=== PATIENT | female | born 1935 | race Caucasian/White ===

== ENCOUNTER → 2023-12-06 10:25 | Outpatient (REF) | payer MEDICARE, SELFPAY ==
[2023-12-06 12:03] LABS: % Basophils 0.6 % (0-2); % Eosinophils 5.5 % (0-6); % Lymphocytes 39.8 % (20.5-51.1); % Monocytes 13.3 % (1.7-9.3); % Neutrophils 40.8 % (42.2-75.2); Absolute Eosinophils 0.3 10^3/uL (0-0.7); Absolute Monocytes 0.7 10^3/uL (0.1-0.6); Absolute Neutrophils 2.1 10^3/uL (1.4-6.5); Hematocrit 32.2 % (37.0-47.0); Hemoglobin 9.9 g/dL (12.0-16.0); Mean Corp Hgb Conc. 30.7 g/dL (33.0-37.0); Mean Corpuscular Hgb 28.4 pg (27.0-31.0); Mean Corpuscular Volume 92.5 fL (81.0-99.0); Mean Platelet Volume 11.4 fL (7.4-10.4); Nucleated Red Blood Cells % 0 %; Platelet Count 193 10^3/uL (130-400); Red Blood Cell Count 3.48 10^6/uL (4.20-5.40); Red Cell Dist. Width 15.4 % (11.5-14.5); White Blood Cell Count 5.1 10^3/uL (4.8-10.8)
[2023-12-06 12:17] LABS: Blood Urea Nitrogen 20 mg/dl (7-17); Calcium 8.5 mg/dl (8.4-10.2); Carbon Dioxide 33 mmol/L (22-30); Chloride 100 mmol/L (98-107); Glucose 87 mg/dl (70-99); Potassium 4.1 mmol/L (3.5-5.1); Sodium 137 mmol/L (135-145); eGFR > 60.00
[2023-12-06 12:26] LABS: NT-proBNP 896 pg/ml
== END ==
LOC: OLABN 10:25
PROVIDERS: ATTENDING PHYSICIAN Student in an Organized Health Care Education/Training Program
DX: Z13.9 Encounter for screening, unspecified (principal); Z13.0 Encounter for screening for diseases of the blood and blood-forming organs and certain disorders involving the immune mechanism; I10 Essential (primary) hypertension
CPT/HCPCS: 36415; 80048; 83880; 85025

== ENCOUNTER → 2024-02-06 10:04 | Outpatient (REF) | payer MEDICARE, SELFPAY ==
[2024-02-06 11:49] LABS: Blood Urea Nitrogen 20 mg/dl (7-17); Calcium 8.9 mg/dl (8.4-10.2); Carbon Dioxide 33 mmol/L (22-30); Chloride 96 mmol/L (98-107); Glucose 108 mg/dl (70-99); Magnesium 2.1 mg/dl (1.6-2.3); Potassium 4.4 mmol/L (3.5-5.1); Sodium 133 mmol/L (135-145); eGFR > 60.00
[2024-02-06 16:29] LABS: NT-proBNP 1730 pg/ml
== END ==
LOC: OLABN 10:04
PROVIDERS: ATTENDING PHYSICIAN Student in an Organized Health Care Education/Training Program
DX: R05.9 Cough, unspecified (principal)
CPT/HCPCS: 80048; 83735; 83880

== ENCOUNTER → 2024-02-11 11:00 | Outpatient (REF) | payer MEDICARE, SELFPAY ==
[2024-02-11 13:59] LABS: Blood Urea Nitrogen 25 mg/dl (7-17); Calcium 8.9 mg/dl (8.4-10.2); Carbon Dioxide 34 mmol/L (22-30); Chloride 96 mmol/L (98-107); Glucose 117 mg/dl (70-99); Potassium 4.4 mmol/L (3.5-5.1); Sodium 134 mmol/L (135-145); eGFR > 60.00
== END ==
LOC: OLABN 11:00
PROVIDERS: ATTENDING PHYSICIAN Student in an Organized Health Care Education/Training Program
DX: R05.9 Cough, unspecified (principal)
CPT/HCPCS: 36415; 80048

== ENCOUNTER → 2024-03-06 10:10 | Outpatient (REF) | payer MEDICARE, SELFPAY ==
[2024-03-06 11:19] LABS: ALT (SGPT) < 10 U/L (0-35); AST (SGOT) 20 U/L (14-36); Albumin 3.4 g/dl (3.5-5.0); Alkaline Phosphatase 72 U/L (38-126); Blood Urea Nitrogen 19 mg/dl (7-17); Carbon Dioxide 35 mmol/L (22-30); Chloride 100 mmol/L (98-107); Glucose 91 mg/dl (70-99); Magnesium 2.1 mg/dl (1.6-2.3); Potassium 4.5 mmol/L (3.5-5.1); Sodium 139 mmol/L (135-145); Total Bilirubin 0.4 mg/dl (0.2-1.3); Total Protein 5.9 g/dl (6.3-8.2); eGFR > 60.00
[2024-03-06 11:26] LABS: NT-proBNP 963 pg/ml
== END ==
LOC: OLABN 10:10
PROVIDERS: ATTENDING PHYSICIAN Student in an Organized Health Care Education/Training Program
DX: R60.9 Edema, unspecified (principal)
CPT/HCPCS: 36415; 80053; 83735; 83880

== ENCOUNTER → 2024-05-13 11:16 | Outpatient (REF) | payer MEDICARE, OTHER, SELFPAY ==
[2024-05-13 12:31] LABS: % Basophils 0.2 % (0-2); % Eosinophils 1.5 % (0-6); % Immature Granulocytes 0.3 % (0-0.5); % Lymphocytes 15.8 % (20.5-51.1); % Monocytes 12.1 % (1.7-9.3); % Neutrophils 70.1 % (42.2-75.2); Absolute Eosinophils 0.1 10^3/uL (0-0.7); Absolute Lymphocytes 1.5 10^3/uL (1.2-3.4); Absolute Monocytes 1.1 10^3/uL (0.1-0.6); Absolute Neutrophils 6.6 10^3/uL (1.4-6.5); Hemoglobin 9.2 g/dL (12.0-16.0); Mean Corp Hgb Conc. 30.7 g/dL (33.0-37.0); Mean Corpuscular Hgb 27.8 pg (27.0-31.0); Mean Corpuscular Volume 90.6 fL (81.0-99.0); Mean Platelet Volume 12.2 fL (7.4-10.4); Nucleated Red Blood Cells % 0 %; Platelet Count 190 10^3/uL (130-400); Red Blood Cell Count 3.31 10^6/uL (4.20-5.40); Red Cell Dist. Width 15.5 % (11.5-14.5); White Blood Cell Count 9.4 10^3/uL (4.8-10.8)
[2024-05-13 12:43] LABS: NT-proBNP 1690 pg/ml
[2024-05-13 12:46] LABS: ALT (SGPT) 13 U/L (0-35); AST (SGOT) 22 U/L (14-36); Albumin 3.7 g/dl (3.5-5.0); Alkaline Phosphatase 71 U/L (38-126); Blood Urea Nitrogen 17 mg/dl (7-17); Calcium 8.6 mg/dl (8.4-10.2); Carbon Dioxide 33 mmol/L (22-30); Chloride 95 mmol/L (98-107); Glucose 95 mg/dl (70-99); Potassium 4.2 mmol/L (3.5-5.1); Sodium 139 mmol/L (135-145); Total Bilirubin 0.6 mg/dl (0.2-1.3); Total Protein 6.3 g/dl (6.3-8.2); eGFR > 60.00
== END ==
LOC: OLABN 11:16
PROVIDERS: ATTENDING PHYSICIAN Student in an Organized Health Care Education/Training Program
DX: D49.511 Neoplasm of unspecified behavior of right kidney (principal); R06.2 Wheezing; R60.0 Localized edema
CPT/HCPCS: 36415; 80053; 83880; 85025

== ENCOUNTER → 2024-05-16 08:03 | Outpatient (REF) | payer MEDICARE, OTHER, SELFPAY ==
[2024-05-16 10:45] LABS: Blood Urea Nitrogen 16 mg/dl (7-17); Calcium 8.9 mg/dl (8.4-10.2); Carbon Dioxide 36 mmol/L (22-30); Chloride 94 mmol/L (98-107); Glucose 149 mg/dl (70-99); Potassium 4.3 mmol/L (3.5-5.1); Sodium 138 mmol/L (135-145); eGFR > 60.00
[2024-05-16 10:53] LABS: NT-proBNP 2190 pg/ml
== END ==
LOC: OLABN 08:03
PROVIDERS: ATTENDING PHYSICIAN Student in an Organized Health Care Education/Training Program
DX: R06.02 Shortness of breath (principal)
CPT/HCPCS: 36415; 80048; 83880

== ENCOUNTER → 2024-07-16 08:38 | Outpatient (REF) | payer MEDICARE, OTHER, SELFPAY ==
[2024-07-16 10:41] LABS: ALT (SGPT) 11 U/L (0-35); AST (SGOT) 24 U/L (14-36); Albumin 3.7 g/dl (3.5-5.0); Alkaline Phosphatase 72 U/L (38-126); Blood Urea Nitrogen 14 mg/dl (7-17); Calcium 8.3 mg/dl (8.4-10.2); Chloride 92 mmol/L (98-107); Glucose 102 mg/dl (70-99); Sodium 138 mmol/L (135-145); Total Bilirubin 0.3 mg/dl (0.2-1.3); Total Protein 6.3 g/dl (6.3-8.2); eGFR > 60.00
[2024-07-16 10:46] LABS: NT-proBNP 1290 pg/ml
[2024-07-16 10:51] LABS: Carbon Dioxide 36 mmol/L (22-30)
== END ==
LOC: OLABN 08:38
PROVIDERS: ATTENDING PHYSICIAN Student in an Organized Health Care Education/Training Program
DX: R60.9 Edema, unspecified (principal)
CPT/HCPCS: 36415; 80053; 83880

== ENCOUNTER → 2024-07-18 10:23 | Outpatient (REF) | payer MEDICARE, OTHER, SELFPAY ==
[2024-07-18 11:32] LABS: Blood Urea Nitrogen 16 mg/dl (7-17); Calcium 8.6 mg/dl (8.4-10.2); Chloride 90 mmol/L (98-107); Glucose 135 mg/dl (70-99); Sodium 135 mmol/L (135-145); eGFR > 60.00
[2024-07-18 11:42] LABS: Carbon Dioxide 34 mmol/L (22-30); NT-proBNP 2110 pg/ml
== END ==
LOC: OLABN 10:23
PROVIDERS: ATTENDING PHYSICIAN Student in an Organized Health Care Education/Training Program
DX: R60.9 Edema, unspecified (principal)
CPT/HCPCS: 36415; 80048; 83880

== ENCOUNTER → 2024-10-14 11:27 | Outpatient (REF) | payer MEDICARE, OTHER, SELFPAY ==
[2024-10-14 12:45] LABS: Vitamin D, 25-OH*** 36.5 ng/mL (30-80)
[2024-10-14 12:59] LABS: TSH 1.99 uIU/ml (0.47-4.68)
== END ==
LOC: OLABN 11:27
PROVIDERS: ATTENDING PHYSICIAN Student in an Organized Health Care Education/Training Program
DX: R94.6 Abnormal results of thyroid function studies (principal); E55.9 Vitamin D deficiency, unspecified
CPT/HCPCS: 36415; 82306; 84443

== ENCOUNTER 2024-10-24 14:33 | Inpatient (IN) | payer MEDICARE, OTHER, SELFPAY ==
[2024-10-24] VITALS (22 sets, daily range): BP systolic 108–177; BP diastolic 52–95; BMI 33.1; BMI 32.6
[2024-10-24 09:37] LABS: % Basophils 0.2 % (0-2); % Eosinophils 0.7 % (0-6); % Immature Granulocytes 0.4 % (0-0.5); % Lymphocytes 11.5 % (20.5-51.1); % Neutrophils 72.2 % (42.2-75.2); Absolute Eosinophils 0.1 10^3/uL (0-0.7); Absolute Lymphocytes 1.1 10^3/uL (1.2-3.4); Absolute Monocytes 1.4 10^3/uL (0.1-0.6); Absolute Neutrophils 6.6 10^3/uL (1.4-6.5); Hematocrit 32.8 % (37.0-47.0); Hemoglobin 10.1 g/dL (12.0-16.0); Mean Corp Hgb Conc. 30.8 g/dL (33.0-37.0); Mean Corpuscular Hgb 27.2 pg (27.0-31.0); Mean Corpuscular Volume 88.2 fL (81.0-99.0); Nucleated Red Blood Cells % 0 %; Platelet Count 172 10^3/uL (130-400); Red Blood Cell Count 3.72 10^6/uL (4.20-5.40); Red Cell Dist. Width 15.1 % (11.5-14.5); White Blood Cell Count 9.1 10^3/uL (4.8-10.8)
--- NOTE | 2024-10-24 09:38 | ED.GENMED ---
History of Present Illness
General
Chief Complaint: Chest Pain
Source: patient
Exam Limitations: none
Time Seen by Provider: 10/24/24 09:31
History of Present Illness
History of Present Illness:
89yoF with a history of COPD, atrial fibrillation, hypertension, and hyperlipidemia presenting via EMS for evaluation of chest pain. Patient is a resident at [facility]. She reports developing a pain throughout her chest starting last night.
She describes her pain as a pressure sensation. Nothing seems to make the pain better or worse. She also reports cough, wheezing, and shortness of breath. Patient was given a DuoNeb prehospital for wheezing without much improvement. She has a
documented history of COPD but is not oxygen dependent at baseline.
Past History
Past History
ED Past Medical History: HTN, Hypercholesterolemia and Other (Chronic back pain)
ED Past Surgical History: Orthopedic (Right knee surgery)
Social History
Tobacco: Non-smoker
Alcohol: Daily
Drug: None
Personal: Single
Living: alone
Employment: Not employed
Phy Exam
General Physical Exam
General Presentation: moderate distress
General Skin: warm and dry
General Habitus: normal and elderly
General Mental: alert
ENT Exam
ENT Exam: normocephalic
Cardiovascular Exam
Cardiovascular Exam: irregularly irregular and tachycardia
Pulmonary Exam
Pulmonary Exam: generalized wheezing and other (Audible wheezing with tachypnea. Patient on 4L NC on initial exam with oxygen saturation in the 88-89% range)
Neurological Exam
Neurological Exam: alert
Skin Exam
Skin Exam: normal color and warm/dry
Psychiatric Exam
Psychiatric Exam: normal mood/affect
Scores
Heart Score for Chest Pain Patients
STEMI patient?: Not applicable
Sepsis
Sepsis Screening
Sepsis Assessment: Sepsis Ruled Out
Sepsis Screen
Sepsis Screen: Sepsis Ruled Out
Date: 10/24/24
Time: 15:35
Course
Orders/Labs/Results
Orders:
Orders
10/24/24 09:17
Electrocardiogram (*1) Urgent
Reason for Study: Chest Pain
10/24/24 09:18
EKG- Treatment ONCE
10/24/24 09:19
COVID-19 Antigen Urgent
Source: Nasal Swab
Complete Blood Count/With Diff Urgent
Comprehensive Metabolic Panel Urgent
Magnesium Urgent
Comment: ADD ON
NT-proBNP Urgent
Comment: ADD ON
Troponin I Urgent
Influenza A+B Rapid Molecular Urgent
FELICITY Source: Nasal Swab
Specimen Description:
10/24/24 09:31
Ipratropium/Albuterol Sulfate [Duoneb] 3 ml .ROUTE .[facility]
10/24/24 09:36
Add On- LAB Urgent
Tests Added?: mag
Albuterol Sulfate [Ventolin Nebules] 10 mg INH R NOW STA
Ipratropium Nebs [Atrovent Nebules] 1 mg INH R NOW STA
CR Chest Portable - 1 View Urgent
Comment:
Reason For Exam: CP, hypoxia
Reason Study Needs to be Portable: Unable to Transport
10/24/24 09:38
Respiratory Syncytial Virus Urgent
FELICITY Source: Nasal Swab
Specimen Description:
Date Specimen was Collected: 10/24/24
Time Specimen was Collected: 09:36
10/24/24 09:45
0.9% Sodium Chloride 500 ml [Nss] 500 ml IV BOLUS
Acetaminophen [Tylenol] 1,000 mg PO NOW STA
10/24/24 10:02
Add On- LAB Urgent
Tests Added?: BNP
10/24/24 10:11
Azithromycin 500 mg/250 ml [Zithromax Infusion] 500 mg in 250 ml IV NOW
Dexamethasone Sod Phosphate [Decadron] 10 mg IV NOW STA
Magnesium Sulfate 2 Gram/50 ml [Magnesium Sulfate] 2 gram in 50 ml IV NOW
10/24/24 10:13
Blood Culture Q30M
FELICITY Source: Blood/Venous
Specimen Description:
Blood Culture Q30M
FELICITY Source: Blood/Venous
Specimen Description:
10/24/24 13:57
CT Chest PE Study Urgent
Comment:
Reason For Exam: hypoxia tachycardia S1Q3T3
10/24/24 14:00
CefTRIAXone [Rocephin] 2,000 mg IV Q24H
Sterile Water [Sterile Water For Injection] 20 ml IV Q24H
10/24/24 14:13
Admit/Transfer Patient As Directed
Co-Sign Provider:
Level of Care: Inpatient admission
Assign to:: Telemetry
Physician / Group: Lesly Lynn
Diagnosis: COPD exacerbation
Reason for Telemetry: Arrhythmia
Date to Stop Telemetry: 10/27/24
Time to Stop Telemetry: 11:00
Reason for Hospitalization: COPD exacerbation
Expected length of stay greater than two midnights?: Yes
ELOS- Estimated Length of Stay in days: 2
I certify the patient meets the requirements for IP care: Yes
PRN Pain Medication Management As Directed
May give lesser potent ordered pain med per pt: Yes
preference::
Protocol:: Medication orders for pain may be administered in a
manner that supports deferring to patient preference
when the pt is:
- Requesting an ordered lesser potent pain medication.
Least to most potent pain medications are defined
as: acetaminophen < NSAID < tramadol < opioids
(morphine, oxycodone, hydromorphone).
- Requesting a lesser dose of the same medication IF
ORDERED.
- Requesting a less intrusive route of administration
if both routes are prescribed by the provider (PO <
IV).
10/24/24 14:19
Code Status As Directed
Resuscitation Status: Do not resuscitate
Reached after discussion with pt or family/Healthcare POA: Yes
DNR Bracelet Application ONCE
10/24/24 14:59
Venous Blood Gas Routine
%Oxygen/Room Air: 92
10/27/24 11:00
DC Protocol for Telemetry ONCE
Abnormal Lab Results
10/24/24
09:19
RBC 3.72 L 10^6/uL
(4.20-5.40)
Hgb 10.1 L g/dL
(12.0-16.0)
Hct 32.8 L %
(37.0-47.0)
MCHC 30.8 L g/dL
(33.0-37.0)
RDW 15.1 H %
(11.5-14.5)
Absolute Neuts (auto) 6.6 H 10^3/uL
(1.4-6.5)
Absolute Lymphs (auto) 1.1 L 10^3/uL
(1.2-3.4)
Absolute Monos (auto) 1.4 H 10^3/uL
(0.1-0.6)
Lymphocytes % 11.5 L %
(20.5-51.1)
Monocytes % 15.0 H %
(1.7-9.3)
Chloride 95 L mmol/L
(98-107)
Carbon Dioxide 37 H mmol/L
(22-30)
Glucose 125 H mg/dl
(70-99)
10/24/24 09:19
10/24/24 09:19
Vital Signs
Initial and Last Documented VS:
Initial Vital Signs
Temp Pulse Resp BP Pulse Ox
100.5 F H 117 23 163/73 86
10/24/24 09:19 10/24/24 09:19 10/24/24 09:19 10/24/24 09:19 10/24/24 09:19
Last Documented Vital Signs
Temp Pulse Resp BP Pulse Ox
100.5 F H 105 17 147/94 95
10/24/24 09:19 10/24/24 14:45 10/24/24 14:45 10/24/24 14:20 10/24/24 14:45
MDM/Problems Addressed
Differential Diagnosis Includes:
89yoF here with chest pressure since last night. Also having SOB, wheezing, cough. Hx of COPD. She is febrile to 100.5 on arrival. Patient placed on 4L NC by nursing staff and she is 88% during initial exam with audible wheezing. Differential
diagnosis includes but is not limited to: COPD exacerbation, bronchitis, viral illness, pneumonia, ACS
Initial ED plan: Check cardiac labs, COVID/flu/RSV swab, EKG, and chest x-ray. Will give hour-long neb treatment and reassess.
*EKG
Interpreted by ED Provider?: Yes
EKG Intrepretation Date: 10/24/24
Heart Rate: 121
Rate: tachycardiac
Rhythm: a-fib and PVC's
[place]: normal axis
Interval: normal interval
QRS Pattern: normal QRS
Ischemia: no ischemia
*Critical Care Note
Total Time (30-74mins, 75-104mins- exclusive of procedures): Not Applicable
Update Note
Update Note:
Viral testing negative. Chest x-ray shows mild pulmonary vascular congestion without focal infiltrates. EKG shows atrial fibrillation with heart rate of 121. No ischemic changes noted and troponin within normal limits. Her chest discomfort has
improved after neb treatment and wheezing also improved. Patient given IV Decadron, magnesium, and azithromycin for COPD exacerbation. She was admitted for further management.
ED Attending Note
-
Portions of this chart may have been created with voice recognition software.� Occasional wrong word or��sound alike� substitutions may have occurred due to the inherent limitations of voice recognition software.
Discharge Plan
Departure
Patient Disposition: Admit
Date of Disposition: 10/24/24
Time of Disposition: 10:56
Presentation/result/management discussed w/ accepting MD/DO: Hospitalist
Discharge Problem:
Acute exacerbation of chronic obstructive pulmonary disease, Acute hypoxic respiratory failure
Interventions
Interventions:
*Risk Screen - Suicide Last Done: 10/24/24 09:24
*General Assessment Last Done: 10/24/24 09:24
*Neglect/Abuse Screening Last Done: 10/24/24 09:24
*ED- Fall Risk Assessment Last Done: 10/24/24 09:24
*ED COVID-19 Vaccine History Last Done: 10/24/24 09:24
ED- Cardiac Assessment Last Done: 10/24/24 09:27
[2024-10-24] MEDS: VENTOLIN NEBULES 10 MG INH (09:40)
[2024-10-24] MEDS: ATROVENT NEBULES 1 MG INH (09:40)
[2024-10-24 09:45] LABS: ALT (SGPT) 13 U/L (0-35); AST (SGOT) 18 U/L (14-36); Albumin 3.8 g/dl (3.5-5.0); Alkaline Phosphatase 78 U/L (38-126); Blood Urea Nitrogen 17 mg/dl (7-17); Calcium 8.9 mg/dl (8.4-10.2); Carbon Dioxide 37 mmol/L (22-30); Chloride 95 mmol/L (98-107); Estimated Creatinine Clearance 50 ml/min; Glucose 125 mg/dl (70-99); Sodium 137 mmol/L (135-145); Total Bilirubin 0.7 mg/dl (0.2-1.3); Total Protein 6.5 g/dl (6.3-8.2); eGFR > 60.00
[2024-10-24] MEDS: NSS 500 IV (09:50)
[2024-10-24] MEDS: TYLENOL 1000 MG PO (09:50)
[2024-10-24 09:55] LABS: Troponin I < 0.012 ng/ml
[2024-10-24 10:06] LABS: COVID-19 Antigen Negative (Negative)
[2024-10-24 10:16] LABS: Magnesium 1.9 mg/dl (1.6-2.3)
[2024-10-24] MEDS: DECADRON 10 MG IV (10:28)
[2024-10-24] MEDS: ZITHROMAX INFUSION 250 IV (10:29)
[2024-10-24] MEDS: MAGNESIUM SULFATE 50 IV (10:30)
[2024-10-24 10:31] LABS: NT-proBNP 1880 pg/ml
--- NOTE | 2024-10-24 11:33 | HPS.HSE ---
Family Physician
-
Family Physician: NOT KNOW UNKNOWN - PT DOES
Chief Complaint
-
chest pain
History of Present Illness
89F [facility] Zheng history COPD on continuous oxygen baseline unclear amount, atrial fibrillation Eliquis, hypertension, hyperlipidemia, Obesity, Fibromyalgia presented for evaluation chest pain. She reported developing a pain throughout her chest
starting night prior presentation. Pain was described as pressure sensation with no alleviating or exacerbating factors. Patient also endorsed cough, wheezing, and shortness of breath. Patient received duoneb steroids in ED with subsequent
improvement in symptoms including resolution of chest pain. Troponin neg. EKG noted afib tachy S1Q3T3 but otherwise no significant change from prior EKG 27 October 2021. Fever 100.5 with tachycardia concerning for possible sepsis. Blood pressure
stable. lactic acid pending.
Medical History
Past Medical History
Past Medical History: Reports Other (as above)
Past Surgical History: Reports Other (as above)
Social History
Tobacco: Non-smoker
Alcohol: None
Drug: None
Living: Jail
Family History
Family History: Not pertinent (reviewed)
Allergies / Home Medications
Allergies reflects when Allergies were last updated in [facility].
Home Medications with original date entered in [facility]
Allergy/Medication List:
Allergies
Allergy/AdvReac Type Severity Reaction Status Date / Time
No Known Allergies Allergy Verified 07/10/16 07:56
Home Medications
amlodipine 5 mg tablet (Norvasc) 5 mg PO DAILY 02/19/22
buprenorphine 7.5 mcg/hour weekly transdermal patch (Butrans) 1 patch transdermal TH 02/19/22
duloxetine 30 mg capsule,delayed release (Cymbalta) 20 mg PO DAILY 02/19/22
oxycodone 5 mg tablet 5 mg PO DAILY 02/19/22
acetaminophen 325 mg tablet 650 mg PO Q4H PRN mild pain/fever 10/24/24
albuterol sulfate 90 mcg/actuation aerosol inhaler 2 puff inhalation Q6H PRN sob 10/24/24
apixaban 2.5 mg tablet (Eliquis) 2.5 mg PO BID 10/24/24
baclofen 5 mg tablet 5 mg PO TID 10/24/24
bisacodyl 10 mg rectal suppository 10 mg NV DAILY PRN 3 days no bm, MOM is ineffective 10/24/24
budesonide 0.5 mg/2 mL suspension for nebulization 0.5 mg inhalation R BID 10/24/24
calcium 500 mg (as carbonate)-vitamin D3 10 mcg (400 unit) tablet (Oyster Shell Calcium-Vitamin D3) 1 tab PO DAILY 10/24/24
fluticasone propionate 50 mcg/actuation nasal spray,suspension 1 spray intranasal BID 10/24/24
gabapentin 300 mg capsule 300 mg PO TID 10/24/24
ipratropium 0.5 mg-albuterol 3 mg (2.5 mg base)/3 mL nebulization soln 3 ml inhalation R TID 10/24/24
labetalol 100 mg tablet 100 mg PO BID 10/24/24
latanoprost 0.005 % eye drops 1 drp BOTH EYES HS 10/24/24
lidocaine 4 % topical patch 1 patch topical DAILY 10/24/24
magnesium hydroxide 400 mg/5 mL oral suspension (Milk of Magnesia) 2,400 mg PO HSPRN PRN constipation 10/24/24
naloxone 4 mg/actuation nasal spray (Narcan) 1 spray intranasal PRN PRN opioid overdose 10/24/24
oxycodone 5 mg tablet 5 mg PO DAILYPRN PRN moderate pain 10/24/24
sennosides 8.6 mg-docusate sodium 50 mg tablet (Senna Plus) 2 tab-cap PO QPM 10/24/24
Review of Systems
-
A 12 point ROS was completed and negative except as noted: Yes
Constitutional: Reports Other (as below)
Physical Exam
Vital Signs
Vital Signs
Temp Pulse Resp BP Pulse Ox
100.5 F H 108 18 121/73 91
10/24/24 09:19 10/24/24 11:15 10/24/24 11:15 10/24/24 11:00 10/24/24 11:15
Physical Exam
General: Other (as below)
Laboratory Results
-
10/24/24 09:19
10/24/24 09:19
Laboratory Results
Total Bilirubin 0.7 mg/dl (0.2-1.3) 10/24/24 09:19
AST 18 U/L (14-36) 10/24/24 09:19
ALT 13 U/L (0-35) 10/24/24 09:19
Alkaline Phosphatase 78 U/L (38-126) 10/24/24 09:19
Troponin I < 0.012 ng/ml 10/24/24 09:19
Impression/Plan
-
ROS
General: Denies fever chills night sweats unexpected weight loss
Neuro: Denies seizure shaking loss of consciousness dizziness vertigo
Psych: denies depression hallucinations confusion manic episodes
Endocrine: Denies polyuria polydipsia polyphagia heat/cold intolerance
HEENT: Denies blindness visual disturbances epistaxis
Pulmonary: reports coughing shortness of breath wheezing
Cardiovascular: reports chest pain palpitations though resolved at this timed
Hematology: denies signs symptoms of anemia easy bruising/bleeding
Gastrointestinal: denies nausea vomiting diarrhea constipation hematemesis hematochezia melena
Genito-Urinary: denies retention incontinence dysuria
Musculoskeletal: denies joint pain weakness
Dermatology: denies rash laceration bruising
Physical Exam
General: No pallor, cyanosis, or jaundice. obese
HEENT: Throat clear. PERRLA Normocephalic atraumatic
NECK: Supple. No JVD Carotid Bruits
RESPIRATORY: Lungs clear to auscultation. No crackles wheezes stridor. Stable respiratory status on 3L
CVS: S1, S2 irregularly irregular tachy. No murmur, rub or gallop.
ABDOMEN: Soft, non-tender. No distension. BS+/normal.
EXTREMITIES: No peripheral cyanosis or edema.
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
IMPRESSION:
89F [place] history COPD on continuous oxygen baseline unclear amount, atrial fibrillation Eliquis, hypertension, hyperlipidemia, Obesity, Fibromyalgia presented for evaluation chest pain. She reported developing a pain throughout her chest
starting night prior presentation. Pain was described as pressure sensation with no alleviating or exacerbating factors. Patient also endorsed cough, wheezing, and shortness of breath. Patient received duoneb steroids in ED with subsequent
improvement in symptoms including resolution of chest pain. Troponin neg. EKG noted afib tachy S1Q3T3 but otherwise no significant change from prior EKG 27 October 2021. Fever 100.5 with tachycardia concerning for possible sepsis. Blood pressure
stable. lactic acid pending.
PLAN:
#COPD exacerbation
#Possible Sepsis PNA
#Possible PE (less likely, on anticoagulation for afib)
Tele admit
check CT chest
cont nebulizer tx, steroids
follow blood cultures
cont empiric Ceftriaxone azithromycin
check Lactic Acid, VBG, procalcitonin
trend temp, wbc
cont O2 supplementation as necessary pulse ox 92%
BNP elevated but improved from patient's prior values, possibly baseline
#Afib
#HTN
cont Eliquis dose increased to 5 mg BID
Cont labetalol amlodipine with holding parameters
#Fibromyalgia
#Neuropathy
#Arthritis
cont pain control
Cymbalta
Gabapentin
Oxycodone scheduled and prn
baclofen
Tylenol prn
ST/PT/OT eval requested
dvt ppx Eliquis
gi ppx Protonix
DNR as per patient and daughters Marci HOLLAND and Elba
Discussed with patient and patient's daughters named above
I spent a total of 80 minutes with the patient or on the floor. More than 50% of this time involved counseling and coordination of care.
[2024-10-24] MEDS: ROCEPHIN 2000 MG IV (15:00)
[2024-10-24] MEDS: STERILE WATER FOR INJECTION 20 ML IV (15:00)
[2024-10-24 15:18] LABS: Venous Blood Gas B.E. 10.6 mmol/L (-4 to +4); Venous Blood Gas HCO3 37.2 mmol/L (22-27); Venous Blood Gas O2 Sat % 98.8 %; Venous Blood Gas pCO2 60 mmHg (35-48); Venous Blood Gas pO2 160 mmHg (30-50)
[2024-10-24 15:37] LABS: Lactic Acid 0.7 mmol/L (0.7-2.0)
[2024-10-24] MEDS: SOLU-MEDROL PF 40 MG IV ×2 (18:00→23:32)
[2024-10-24] MEDS: SENOKOT-S 1 TABLET PO (18:07)
[2024-10-24] MEDS: PROTONIX 40 MG PO (18:07)
[2024-10-24] MEDS: LIORESAL 5 MG PO ×2 (18:07→21:25)
[2024-10-24] MEDS: NEURONTIN 300 MG PO ×2 (18:07→21:27)
[2024-10-24] MEDS: DUONEB 3 ML INH (18:27)
[2024-10-24] MEDS: PULMICORT 0.5 MG INH (18:27)
[2024-10-24] MEDS: TRANDATE 100 MG PO (21:25)
[2024-10-24] MEDS: ELIQUIS 5 MG PO (21:25)
[2024-10-24] MEDS: XALATAN OPHTHALMIC SOLUTION 1 DROP BOTH EYES (21:27)
[2024-10-25] VITALS (8 sets, daily range): BP systolic 125–159; BP diastolic 59–90; PULSE 92–99; O2SAT 97–98; BMI 32.7
[2024-10-25] MEDS: DUONEB 3 ML INH ×3 (05:44→19:24)
[2024-10-25] MEDS: PULMICORT 0.5 MG INH ×2 (05:44→19:24)
[2024-10-25 06:37] LABS: Hematocrit 32.3 % (37.0-47.0); Hemoglobin 10.1 g/dL (12.0-16.0); Mean Corp Hgb Conc. 31.3 g/dL (33.0-37.0); Mean Corpuscular Hgb 27.4 pg (27.0-31.0); Mean Corpuscular Volume 87.5 fL (81.0-99.0); Mean Platelet Volume 10.6 fL (7.4-10.4); Platelet Count 180 10^3/uL (130-400); Red Blood Cell Count 3.69 10^6/uL (4.20-5.40); White Blood Cell Count 5.5 10^3/uL (4.8-10.8)
--- NOTE | 2024-10-25 06:51 | PTCARENOTE ---
Pt reported feels like food gets stuck in throat sometimes. Able to clear it but trouble with eating meals because of it. ST screen from nursing placed. Pt was able to take PO meds without difficulty.
[2024-10-25 07:07] LABS: Procalcitonin 0.05 ng/ml (0.0-0.25)
[2024-10-25 07:16] LABS: Blood Urea Nitrogen 17 mg/dl (7-17); Calcium 8.6 mg/dl (8.4-10.2); Carbon Dioxide 34 mmol/L (22-30); Chloride 97 mmol/L (98-107); Estimated Creatinine Clearance 58 ml/min; Glucose 147 mg/dl (70-99); Magnesium 2.5 mg/dl (1.6-2.3); Potassium 4.2 mmol/L (3.5-5.1); Sodium 137 mmol/L (135-145); eGFR > 60.00
--- NOTE | 2024-10-25 07:52 | W.PN.HOSP.TC ---
Today's Communication/Plan
-
steroid taper
cont scheduled nebulizer treatments
ECHO Saturday
Pulm eval
soft bite sized diet, aspiration precautions
cont azithromycin
Incentive Spirometer, Acapella
Assessment / Plan
Assessment / Plan
Physical Exam
General: No pallor, cyanosis, or jaundice. obese
HEENT: Throat clear. PERRLA Normocephalic atraumatic
NECK: Supple. No JVD Carotid Bruits
RESPIRATORY: Largely clear to auscultation, faint wheeze. Stable respiratory status on 3L
CVS: S1, S2 irregularly irregular tachy. No murmur, rub or gallop.
ABDOMEN: Soft, non-tender. No distension. BS+/normal.
EXTREMITIES: No peripheral cyanosis or edema.
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
IMPRESSION:
89F [place] history COPD 3L baseline, atrial fibrillation Eliquis, hypertension, hyperlipidemia, Obesity, Fibromyalgia presented for evaluation chest pain. She reported developing a pain throughout her chest starting night prior
presentation. Pain was described as pressure sensation with no alleviating or exacerbating factors. Patient also endorsed cough, wheezing, and shortness of breath. Patient received duoneb steroids in ED with subsequent improvement in symptoms
including resolution of chest pain. Troponin neg. EKG noted afib tachy S1Q3T3 but otherwise no significant change from prior EKG 27 October 2021. Fever 100.5 with tachycardia concerning for possible sepsis. Blood pressure stable. lactic acid
pending.
PLAN:
#COPD 3L baseline
#COPD exacerbation
#Possible Sepsis PNA
#Possible PE (less likely, on anticoagulation for afib)
Tele admit
CT chest appreciated no PE
cont nebulizer tx, IV steroids tapered to Prednisone 40 mg daily
follow blood cultures
neg procal
empiric Ceftriaxone discontinued
azithromycin continued for anti-inflammatory effects IV 500 mg daily planned for total 3 days (Saturday last )
no significant Lactic Acidosis
VBG appreciated hypercapnia but compensated
cont O2 supplementation as necessary pulse ox 92%
Elevated BNP though appears possibly baseline for patient, checking ECHO for possible Heart Failure, discussed with Cardio CBC no need for inpt evaluation at this time- consult if significant abn/acute change noted on ECHO
Incentive Spirometer Acapella
Pulm eval appreciated
#Afib
#HTN
cont Eliquis dose increased to 5 mg BID doesn't meet criteria for renal dosing (needs at least 2 out of three, meets criteria for age>=80y but not for weight<=60kg or Cr>=1.5)
Cont labetalol amlodipine with holding parameters
#Fibromyalgia
#Neuropathy
#Arthritis
cont pain control
Cymbalta
Gabapentin
Oxycodone scheduled and prn
baclofen
Tylenol prn
ST eval appreciated soft bite sized diet (suspect chest pain COPD exacerbation triggered by aspiration event)
PT/OT eval appreciated return to SNF when medically stable
dvt ppx Eliquis
gi ppx Protonix
DNR as per patient and daughters Marci HOLLAND and Elba
Discussed with patient and patient's daughter Elba
I spent a total of 50 minutes with the patient or on the floor. More than 50% of this time involved counseling and coordination of care.
Anticipated Discharge: 24 - 48 hours
Subjective/Interval History
-
Date of Service: October 25, 2024
No acute distress. Patient reports feeling well. Significant improvement in symptoms since admission. Chest pain free.
Objective Data
-
Labs:
Laboratory Results
10/25/24
06:29
WBC 5.5
Hgb 10.1 L
Hct 32.3 L
Plt Count 180
Sodium 137
Potassium 4.2
Chloride 97 L
Carbon Dioxide 34 H
BUN 17
Creatinine 0.6
Glucose 147 H
Calcium 8.6
Vital Signs:
Vital Signs
Temp Pulse Resp BP Pulse Ox
98.2 F 102 19 152/79 98
10/25/24 07:21 10/25/24 07:21 10/25/24 07:21 10/25/24 07:21 10/25/24 07:21
I&O
10/24/24 10/25/24 10/26/24
06:59 06:59 06:59
Intake Total 960 / 960
Output Total 950 / 950
Balance
--- NOTE | 2024-10-25 08:27 | CM ---
New admit from [facility], appears to be L[facility] resident; will need to check with [facility] Zheng on Saturday for clarification.
--- NOTE | 2024-10-25 09:04 | PTOTSP ---
Speech Pathology Evaluation
89F admitted for chest pain with c/o food getting stuck in throat p/w s/s concerning for oral dysphagia, likely as a result of edentulous status. Aspiration risk is elevated in the presence of COPD with continuous O2 use at baseline.
Recommend:
1. Soft and bite sized (IDDSI 6), thin liquids (IDDSI 0)
2. Meds as best tolerated
3. Strategies: small bites; single sips; chew well; opt for soft/moist foods when dentures are not present; alternate bites and sips
4. COMPUTING TUTOR service to follow up re: to assess diet level tolerance and upgrade as able
[2024-10-25] MEDS: TRANDATE 100 MG PO ×2 (09:27→21:05)
[2024-10-25] MEDS: NEURONTIN 300 MG PO ×3 (09:27→21:11)
[2024-10-25] MEDS: DELTASONE 40 MG PO (09:27)
[2024-10-25] MEDS: PROTONIX 40 MG PO (09:27)
[2024-10-25] MEDS: ELIQUIS 5 MG PO ×2 (09:28→21:05)
[2024-10-25] MEDS: OSCAL 500 + D 500 MG PO (09:28)
[2024-10-25] MEDS: NORVASC 5 MG PO (09:28)
[2024-10-25] MEDS: LIORESAL 5 MG PO ×3 (09:28→21:11)
[2024-10-25] MEDS: ROXICODONE 5 MG PO ×2 (09:28→17:31)
[2024-10-25] MEDS: ZITHROMAX INFUSION 250 IV (09:29)
[2024-10-25] MEDS: LIDOCAINE 4% PATCH 1 PATCH TOPICAL (09:29)
[2024-10-25] MEDS: CYMBALTA DELAYED RELEASE 20 MG PO (13:02)
--- NOTE | 2024-10-25 14:30 | CON.PUL ---
Consultation
Consultation Request
Date/Time Consultation Requested: 10/25/20241027
Date/Time Consultation Performed: 10/25/2024 - 1199
Requesting Provider: Dr. Lynn
Performing Provider: Dr. Cho
Reason for Consultation: Hypoxia
Medical History
-
Chief Complaint: Chest pain + SOB with cough
History of Present Illness:
89-year-old female with a past medical history of A-fib on Eliquis, hypertension, reported history of COPD on home oxygen, aortic valve stenosis and mixed hyperlipidemia who presented with chest pain + SOB. Patient currently lives at [facility]
[place] and developed a productive cough with SOB and wheezing. In the ER she had a fever to 100.5 �F, pulse rate 117, respiratory rate 23, BP 163/73 and saturating 86% on room air, which improved to 93% on 2 L/min. Initial labs showed WBC 9.1, Hb
10.1, absolute eosinophils 100, proBNP 1880, troponin negative at <0.012, and COVID-19 antigen negative. Flu swab was negative for flu A/B, and RSV antigen also negative. Blood cultures collected. CXR showed mild pulmonary vascular congestion
with mildly elevated right hemidiaphragm. She was wheezing in the ER, and given nebulized albuterol, Decadron, ipratropium neb, Zithromax, magnesium, and 500 cc of NS 0.9%. She was admitted to the floor under the hospitalist and pulmonary service
now consulted for additional management/recommendations.
When I saw the patient, she was resting in a chair in no acute distress. She has a wet sounding cough. She currently denies shortness of breath. She is a poor historian. 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
she takes at the retirement. She also denies a history of COPD. She currently denies BUSH, chest pain, nausea, fevers or chills.
PMHx: A-fib on Eliquis, history of bronchitis, essential hypertension, aortic valve stenosis, mixed hyperlipidemia, reported Hx of COPD on home oxygen at retirement, fibromyalgia
PSHx: Hysterectomy, hemorrhoidectomy
Past Medical History
Past Medical History: Other (Above as per HPI)
Past Surgical History: Other (Above as per HPI)
Social History
Tobacco: Non-smoker
Alcohol: None
Drug: None
Family History
Family History: CAD (Father: History of DE at age 47)
Allergies / Home Medications
Allergies
Allergy/AdvReac Type Severity Reaction Status Date / Time
No Known Allergies Allergy Verified 07/10/16 07:56
Home Medications
�Medication �Instructions �Recorded �Confirmed �Last Taken �Type
amlodipine 5 mg tablet (Norvasc) 5 mg PO DAILY Blood Pressure 02/19/22 10/24/24 Unknown History
buprenorphine 7.5 mcg/hour weekly 1 patch transdermal TH Pain 02/19/22 10/24/24 02/15/22 18:30 History
transdermal patch (Butrans)
duloxetine 30 mg capsule,delayed 20 mg PO DAILY Mental Health 02/19/22 10/24/24 Unknown History
release (Cymbalta)
oxycodone 5 mg tablet 5 mg PO DAILY Pain 02/19/22 10/24/24 Unknown History
acetaminophen 325 mg tablet 650 mg PO Q4H PRN mild pain/fever 10/24/24 10/24/24 Unknown History
albuterol sulfate 90 mcg/actuation 2 puff inhalation Q6H PRN sob 10/24/24 10/24/24 Unknown History
aerosol inhaler
apixaban 2.5 mg tablet (Eliquis) 2.5 mg PO BID Blood Clot 10/24/24 10/24/24 Unknown History
Prevention/Tx
baclofen 5 mg tablet 5 mg PO TID Muscle Spasms 10/24/24 10/24/24 Unknown History
bisacodyl 10 mg rectal suppository 10 mg GA DAILY PRN 3 days no bm, 10/24/24 10/24/24 Unknown History
MOM is ineffective
budesonide 0.5 mg/2 mL suspension 0.5 mg inhalation R BID 10/24/24 10/24/24 Unknown History
for nebulization Lung/Breathing Issues
calcium 500 mg (as 1 tab PO DAILY Supplement 10/24/24 10/24/24 Unknown History
carbonate)-vitamin D3 10 mcg (400
unit) tablet (Oyster Shell
Calcium-Vitamin D3)
fluticasone propionate 50 1 spray intranasal BID Congestion 10/24/24 10/24/24 Unknown History
mcg/actuation nasal
spray,suspension
gabapentin 300 mg capsule 300 mg PO TID Pain 10/24/24 10/24/24 Unknown History
ipratropium 0.5 mg-albuterol 3 mg 3 ml inhalation R TID 10/24/24 10/24/24 Unknown History
(2.5 mg base)/3 mL nebulization Lung/Breathing Issues
soln
labetalol 100 mg tablet 100 mg PO BID Blood Pressure 10/24/24 10/24/24 Unknown History
latanoprost 0.005 % eye drops 1 drp BOTH EYES HS Eye Condition 10/24/24 10/24/24 Unknown History
lidocaine 4 % topical patch 1 patch topical DAILY Pain 10/24/24 10/24/24 Unknown History
magnesium hydroxide 400 mg/5 mL 2,400 mg PO HSPRN PRN constipation 10/24/24 10/24/24 Unknown History
oral suspension (Milk of Magnesia)
naloxone 4 mg/actuation nasal 1 spray intranasal PRN PRN opioid 10/24/24 10/24/24 Unknown History
spray (Narcan) overdose
oxycodone 5 mg tablet 5 mg PO DAILYPRN PRN moderate pain 10/24/24 10/24/24 Unknown History
sennosides 8.6 mg-docusate sodium 2 tab-cap PO QPM Constipation 10/24/24 10/24/24 Unknown History
50 mg tablet (Senna Plus)
Review of Systems
-
History Source: Patient
All other systems: Negative unless noted
Vitals / Labs / Diagnostic Testing
Vital Signs
Temp Pulse Resp BP Pulse Ox
98.2 F 102 19 152/79 98
10/25/24 07:21 10/25/24 07:21 10/25/24 07:21 10/25/24 07:21 10/25/24 07:21
Lab Data
10/25/24 06:29
10/25/24 06:29
Microbiology
10/24/24 09:19 Nasal Swab Influenza Types A & B (SURINDER) - Final
Negative for Influenza A & B, NAAT
Negative results must be combined with clinical observations
and patient history.
Nucleic Acid Amplification test (NAAT)performed on the
[employer] platform.
10/24/24 09:38 Nasal Swab Respiratory Syncytial Virus Ag - Final
Negative for Respiratory Syncytial Virus.
A false negative result may be obtained with a specimen
collected early in the acute phase. If symptoms persist, a
new specimen should be tested.
Diagnostic Testing:
Physical Exam
-
HEENT: Normocephalic and Anicteric
Cardiovascular: S1/S2 and Peripheral Edema (+2 lower extremity edema bilaterally)
Respiratory: Wheeze (negative), Rales (negative), Rhonchi (negative), Non-Labored Respirations and Other (Diminished breath sounds bilaterally)
GI: Soft, Non Distended, Non Tender and Normal Bowel Sounds
Neurology: AO x 3 and Tremors (negative)
Skin: Warm and Dry
General: Respiratory Distress (negative), Comfortable, Fever (negative) and Chills (negative)
Assessment
-
Assessment: 89-year-old female with a past medical history of A-fib on Eliquis, hypertension, aortic valve stenosis and mixed hyperlipidemia who presented with chest pain + SOB. Patient currently lives at [facility] and developed a productive
cough with SOB and wheezing. In the ER she had a fever to 100.5 �F, pulse rate 117, respiratory rate 23, BP 163/73 and saturating 86% on room air, which improved to 93% on 2 L/min. Initial labs showed WBC 9.1, Hb 10.1, absolute eosinophils 100,
proBNP 1880, troponin negative at <0.012, and COVID-19 antigen negative. Flu swab was negative for flu A/B, and RSV antigen also negative. Blood cultures collected. CXR showed mild pulmonary vascular congestion with mildly elevated right
hemidiaphragm. She was wheezing in the ER, and given nebulized albuterol, Decadron, ipratropium neb, Zithromax, magnesium, and 500 cc of NS 0.9%. She was admitted to the floor under the hospitalist and pulmonary service now consulted for
additional management/recommendations.
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
Impression:
#Acute respiratory failure with hypoxia due to suspected COPD exacerbation
#Elevated right hemidiaphragm
#Chronic anemia (baseline Hb 10�11.5g/dL)
#Chronic hypercapnic respiratory failure (?OHS)
#Metabolic alkalosis due to compensation for chronic hypercapnia
#Elevated proBNP (1880 on 10/24/2024, which is improved from her prior proBNP on 07/18/2024 which was 2110)
#History of hypertension
#History of mixed hyperlipidemia
#A-fib on Eliquis
Plan:
- She has a reported history of COPD although I have no PFTs to review, and I see no emphysema on her CTA chest from 10/24/2024, though she does have significant bronchial wall thickening suggestive of chronic bronchitis/bronchiolitis; she denies a
history of COPD but she is a poor historian (?dementia - of note she is AAOx3)
- Agree with treatment for COPD exacerbation
- Continue with nebulized bronchodilators with DuoNebs TID + budesonide BID (home medication)
- prn nebulized bronchodilators - not currently bronchospastic
- Continue systemic steroids and wean as she clinically improves � currently on prednisone 40 mg daily
- She has a wet sounding cough, hence we will start scheduled Mucinex
- Acapella; may need vest therapy
- There is no evidence of pneumonia on her CTA chest from 10/24/2024; she has an elevated right hemidiaphragm and I believe that the opacification at the right costophrenic angle is due to atelectasis
- Agree with Zithromax given her fever with possible URI, and the anti-inflammatory effect should help her shortness of breath/hypoxia
- Follow-up blood cultures
- Check a sputum culture if she can produce a decent sample
- Maintain SpO2 88-95% with supplemental O2 and wean down as tolerated
- Incentive spirometer encouraged q1hr while awake
- Trend blood gas to assure pH + pCO2 remain stable; if she develops acute on chronic respiratory acidosis then would need to start BiPAP with sleep
- Replete electrolytes with K>4, Mg>2
- Trend H/H and transfuse if needed to keep Hb>7g/dL; keep plt>20k, unless there is concern for bleeding then keep plt>50k
- Maintain euglycemia with goal BG >100 and <180, especially while on systemic steroids
- PT/OT
- DVT ppx: Eliquis
Code status: DNR/DNI
Pulmonary service will continue to follow along. Outpatient pulmonary follow-up will be arranged.
Total time spent today was 58 minutes for this encounter. Time includes reviewing laboratory test/imaging results, reviewing pertinent medical records, obtaining and reviewing medical history, performing an appropriate exam, ordering medications,
tests and procedures. Time also includes documentation of this encounter, coordinating patient care and communicating with other healthcare professionals. Total time does not include separately billed tests performed on this date of service.
[2024-10-25] MEDS: SENOKOT-S 1 TABLET PO (17:20)
[2024-10-25] MEDS: MUCINEX 1200 MG PO (21:05)
[2024-10-25] MEDS: XALATAN OPHTHALMIC SOLUTION 1 DROP BOTH EYES (21:05)
[2024-10-26 03:25] VITALS: BP 163/93
[2024-10-26] MEDS: ProAIR HFA INHALER 2 PUFF INH (03:45)
[2024-10-26 06:00] VITALS: BMI 32.4
[2024-10-26 06:37] LABS: Venous Blood Gas B.E. 11.3 mmol/L (-4 to +4); Venous Blood Gas HCO3 38.7 mmol/L (22-27); Venous Blood Gas O2 Sat % 87.7 %; Venous Blood Gas pCO2 67 mmHg (35-48); Venous Blood Gas pH 7.37 (7.32-7.43); Venous Blood Gas pO2 55 mmHg (30-50)
[2024-10-26 07:00] VITALS: BP 125/89
[2024-10-26] MEDS: PULMICORT 0.5 MG INH (07:21)
[2024-10-26] MEDS: DUONEB 3 ML INH ×2 (07:21→13:44)
--- NOTE | 2024-10-26 08:18 | W.PN.HOSP.TC ---
Today's Communication/Plan
-
Discharge planning
Assessment / Plan
Assessment / Plan
Physical Exam
General: No pallor, cyanosis, or jaundice. obese
HEENT: Throat clear. PERRLA Normocephalic atraumatic
NECK: Supple. No JVD Carotid Bruits
RESPIRATORY: Largely clear to auscultation, faint wheeze. Stable respiratory status on 3L
CVS: S1, S2 irregularly irregular tachy. No murmur, rub or gallop.
ABDOMEN: Soft, non-tender. No distension. BS+/normal.
EXTREMITIES: No peripheral cyanosis or edema.
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
IMPRESSION:
89F Les Modior history COPD 3L baseline, atrial fibrillation Eliquis, hypertension, hyperlipidemia, Obesity, Fibromyalgia presented for evaluation chest pain. She reported developing a pain throughout her chest starting night prior
presentation. Pain was described as pressure sensation with no alleviating or exacerbating factors. Patient also endorsed cough, wheezing, and shortness of breath. Patient received duoneb steroids in ED with subsequent improvement in symptoms
including resolution of chest pain. Troponin neg. EKG noted afib tachy S1Q3T3 but otherwise no significant change from prior EKG 27 October 2021. Fever 100.5 with tachycardia concerning for possible sepsis. Blood pressure stable. lactic acid
pending.
PLAN:
#COPD 3L baseline
#COPD exacerbation
#Possible Sepsis PNA
#Possible PE (less likely, on anticoagulation for afib)
#Mild acute diastolic CHF
Tele admit
CT chest appreciated no PE
cont nebulizer tx, IV steroids tapered to Prednisone 40 mg daily
follow blood cultures
neg procal
empiric Ceftriaxone discontinued
azithromycin continued for anti-inflammatory effects IV 500 mg daily planned for total 3 days (Saturday last )
no significant Lactic Acidosis
VBG appreciated hypercapnia but compensated
cont O2 supplementation as necessary pulse ox 92%
Elevated BNP though appears possibly baseline for patient, checking ECHO for possible Heart Failure, discussed with Cardio CBC no need for inpt evaluation at this time- consult if significant abn/acute change noted on ECHO
Incentive Spirometer Acapella
Pulm eval appreciated
Will give dose of Lasix 40 mg IV x 1.
Patient back to her baseline and only requires 1 L of oxygen. Prior to admission she was on 3 L of oxygen.
#Afib
#HTN
cont Eliquis dose increased to 5 mg BID doesn't meet criteria for renal dosing (needs at least 2 out of three, meets criteria for age>=80y but not for weight<=60kg or Cr>=1.5)
Cont labetalol amlodipine with holding parameters
#Fibromyalgia
#Neuropathy
#Arthritis
cont pain control
Cymbalta
Gabapentin
Oxycodone scheduled and prn
baclofen
Tylenol prn
ST eval appreciated soft bite sized diet (suspect chest pain COPD exacerbation triggered by aspiration event)
PT/OT eval appreciated return to SNF when medically stable
dvt ppx Eliquis
gi ppx Protonix
DNR as per patient and daughters Marci HOLLAND and Elba
Anticipated Discharge: Today
Subjective/Interval History
-
Date of Service: October 26, 2024
No shortness of breath or chest pain.
Objective Data
-
Labs:
Laboratory Results
10/26/24
06:30
WBC Pending
Hgb Pending
Hct Pending
Plt Count Pending
Sodium Pending
Potassium Pending
Chloride Pending
Carbon Dioxide Pending
BUN Pending
Creatinine Pending
Glucose Pending
Calcium Pending
Vital Signs:
Vital Signs
Temp Pulse Resp BP Pulse Ox
98.1 F 100 18 163/93 98
10/26/24 03:25 10/26/24 07:24 10/26/24 07:24 10/26/24 03:25 10/26/24 07:24
I&O
10/25/24 10/26/24 10/27/24
06:59 06:59 06:59
Intake Total 960 / 960 420 / 420
Output Total 950 / 950
Balance 420 / 420
[2024-10-26 08:20] LABS: Hematocrit 31.5 % (37.0-47.0); Hemoglobin 9.9 g/dL (12.0-16.0); Mean Corp Hgb Conc. 31.4 g/dL (33.0-37.0); Mean Corpuscular Hgb 27.3 pg (27.0-31.0); Mean Corpuscular Volume 86.8 fL (81.0-99.0); Mean Platelet Volume 11.4 fL (7.4-10.4); Platelet Count 212 10^3/uL (130-400); Red Blood Cell Count 3.63 10^6/uL (4.20-5.40); Red Cell Dist. Width 15.1 % (11.5-14.5); White Blood Cell Count 8.4 10^3/uL (4.8-10.8)
--- NOTE | 2024-10-26 08:41 | CM ---
Addendum entered by Emerald Castillo 10/26/24 15:20:
IMM explained & signed. In chart
tranportation forms on chart
Addendum entered by Emerald Castillo 10/26/24 08:50:
[facility]
Report #: [phone]
Fax #: [phone]
Original Note:
Spoke with Sherly at [facility]
Patient is a LTC resident, bed hold
Referral placed in [facility]
PLAN: Return to [facility] when medically stable
--- NOTE | 2024-10-26 09:06 | W.PN.PUL3 ---
Today's Communication / Plan
-
Doing well, continue taper and limited abx course
Consider diuresis given proBNP, ECHO, CXR
Home O2 eval
Needs outpatient pulm/sleep evaluation, we will arrange
D/c planning otherwise per team
Assessment
-
89-year-old female with a past medical history of A-fib on Eliquis, hypertension, aortic valve stenosis and mixed hyperlipidemia who presented with chest pain + SOB. Patient currently lives at [facility] and developed a productive cough with
SOB and wheezing. In the ER she had a fever to 100.5 �F, pulse rate 117, respiratory rate 23, BP 163/73 and saturating 86% on room air, which improved to 93% on 2 L/min. Initial labs showed WBC 9.1, Hb 10.1, absolute eosinophils 100, proBNP 1880,
troponin negative at <0.012, and COVID-19 antigen negative. Flu swab was negative for flu A/B, and RSV antigen also negative. Blood cultures collected. CXR showed mild pulmonary vascular congestion with mildly elevated right hemidiaphragm. She
was wheezing in the ER, and given nebulized albuterol, Decadron, ipratropium neb, Zithromax, magnesium, and 500 cc of NS 0.9%. She was admitted to the floor under the hospitalist and pulmonary service now consulted for additional
management/recommendations.
Impression:
#Acute respiratory failure with hypoxia due to suspected COPD exacerbation
#Elevated right hemidiaphragm
#Chronic anemia (baseline Hb 10�11.5g/dL)
#Chronic hypercapnic respiratory failure (?OHS)
#Metabolic alkalosis due to compensation for chronic hypercapnia
#Elevated proBNP (1880 on 10/24/2024, which is improved from her prior proBNP on 07/18/2024 which was 2110)
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
History of bronchitis
Aortic valve stenosis
Reported Hx of COPD
History of hypertension
History of mixed hyperlipidemia
A-fib on Eliquis
Plan:
She has a reported history of COPD although I have no PFTs to review, and I see no emphysema on her CTA chest from 10/24/2024, though she does have significant bronchial wall thickening suggestive of chronic bronchitis/bronchiolitis; she denies a
history of COPD but she is a poor historian (?dementia - of note she is AAOx3)
Agree with treatment for COPD exacerbation
Continue with nebulized bronchodilators with DuoNebs TID + budesonide BID (home medication)
prn nebulized bronchodilators - not currently bronchospastic
Continue systemic steroids and wean as she clinically improves � currently on prednisone 40 mg daily
Taper at discharge
She has a wet sounding cough, hence we will start scheduled Mucinex
Acapella; may need vest therapy
There is no evidence of pneumonia on her CTA chest from 10/24/2024; she has an elevated right hemidiaphragm and I believe that the opacification at the right costophrenic angle is due to atelectasis
Agree with Zithromax given her fever with possible URI, and the anti-inflammatory effect should help her shortness of breath/hypoxia
Follow-up blood cultures
Sputum culture not obtained --nonproductive
Complete 5 days
proBNP 188, ECHO with and PH
CXR showing some congestion
Consider diuresis
ABG reviewed, chronic CO2 retention (7.4/60, 7.37/67)
Would recommend sleep study as OP
Maintain SpO2 88-95% with supplemental O2 and wean down as tolerated
Incentive spirometer encouraged q1hr while awake
Trend blood gas to assure pH + pCO2 remain stable; if she develops acute on chronic respiratory acidosis then would need to start BiPAP with sleep
Home O2 eval
- Replete electrolytes with K>4, Mg>2
- Trend H/H and transfuse if needed to keep Hb>7g/dL; keep plt>20k, unless there is concern for bleeding then keep plt>50k
- Maintain euglycemia with goal BG >100 and <180, especially while on systemic steroids
- PT/OT
- DVT ppx: Eliquis
Code status: DNR/DNI
Pulmonary service will continue to follow along.
Outpatient pulmonary follow-up will be arranged.
Diagnostic Data
CT Chest 10/24/24- Respiratory motion degradation. Prominent misregistration artifact especially in the lower lobes beyond the segmental level. There is also a misregistration artifact involving the proximal segmental division in the left upper lobe.
Therefore, these divisions are nondiagnostic. No central pulmonary embolism identified. No evidence to suggest right ventricular heart strain. There appears to be left ventricular hypertrophy with myocardial thickening. Pulmonary artery branching
order level of the most proximal pulmonary embolism: N/A Trace right pleural effusion.
Mild parenchymal opacity in the posterior and posterolateral right costophrenic angle, atelectasis versus pneumonia.
CXR 10/24/24- Mild pulmonary vascular congestion. Mildly elevated right hemidiaphragm.
10/27/21- Mild elevation of the right hemidiaphragm. Mild linear atelectasis in the right lower lung.
ECHO 05/29/23- Normal left ventricular size, wall thickness and systolic function. No regional wall motion abnormalities are seen. Estimated ejection fraction is 55-60%. Diastolic function indeterminate.
Normal right ventricular size and function. Mitral valve opens normally. Thickened mitral valve leaflets. Mild mitral regurgitation. Trileaflet aortic valve. Calcified aortic valve. Peak/mean gradients across the aortic valve are 16/10mmHg. Using
an LVOT diameter of 2.0cm. The aortic valve by the Continuity equation is calculated at 1.4cm2, mild aortic stenosis. Tricuspid valve opens normally. Moderate to severe tricuspid regurgitation. Estimated pulmonary artery pressure of 40-45 mmHg.
Assuming a right atrial pressure of 8 mmHg. Compared to prior study 10/02/2021 mitral regurgitation is currently mild and was previously moderate.
-----
Total time spent today was 52 minutes for this encounter. Time includes reviewing laboratory test/imaging results, reviewing pertinent medical records, obtaining and reviewing medical history, performing an appropriate exam, ordering medications,
tests and procedures. Time also includes documentation of this encounter, coordinating patient care and communicating with other healthcare professionals. Total time does not include separately billed tests performed on this date of service.
Subjective Data
-
Date of Service:
Date of Service: October 26, 2024
Chief Complaint: Pulmonary Follow Up
Subjective:
Doing well, no new complaints
Ready to go home
Objective Data
Data Reviewed
Vital Signs / I&O / Oxygen:
Vital Signs
Temp Pulse Resp BP Pulse Ox
98.0 F 100 18 125/89 98
10/26/24 07:00 10/26/24 07:24 10/26/24 07:24 10/26/24 07:00 10/26/24 07:24
Intake and Output
10/25/24 10/26/24 10/27/24
06:59 06:59 06:59
Intake Total 960 / 960 420 / 420
Output Total 950 / 950
Balance 10 10 420 / 420
SaO2 98
Nasal Cannula flow liters per 3
minute
Physical Exam
General: Comfortable and Other (NAD)
HEENT: Normocephalic, Anicteric and Moist Mucous Membranes
Cardiovascular: S1-S2 and Regular Rhythm
Respiratory: Clear (Decreased overall) and Non-Labored Respirations
GI: Soft, Non Distended and Non Tender
Neurology: Awake, Alert, Oriented and No Motor Deficits
Skin: Warm, Dry and Good Color
Labs/Micro/Reports
Lab Data
10/26/24 06:30
Microbiology
10/24/24 21:16 Nose MRSA Screen - Final
No Methicillin Resistant Staphylococcus aureus isolated.
10/24/24 10:13 Blood/Venous Blood Culture - Preliminary
No Growth in 24 hours- Final report to follow
10/24/24 10:13 Blood/Venous Blood Culture - Preliminary
No Growth in 24 hours- Final report to follow
10/24/24 09:19 Nasal Swab Influenza Types A & B (SURINDER) - Final
Negative for Influenza A & B, NAAT
Negative results must be combined with clinical observations
and patient history.
Nucleic Acid Amplification test (NAAT)performed on the
[employer] platform.
10/24/24 09:38 Nasal Swab Respiratory Syncytial Virus Ag - Final
Negative for Respiratory Syncytial Virus.
A false negative result may be obtained with a specimen
collected early in the acute phase. If symptoms persist, a
new specimen should be tested.
[2024-10-26 09:09] LABS: Blood Urea Nitrogen 22 mg/dl (7-17); Calcium 8.8 mg/dl (8.4-10.2); Carbon Dioxide 35 mmol/L (22-30); Chloride 94 mmol/L (98-107); Estimated Creatinine Clearance 49 ml/min; Glucose 122 mg/dl (70-99); Magnesium 2.4 mg/dl (1.6-2.3); Potassium 4.1 mmol/L (3.5-5.1); Sodium 136 mmol/L (135-145); eGFR > 60.00
[2024-10-26] MEDS: ZITHROMAX INFUSION 250 IV (10:11)
[2024-10-26] MEDS: ROXICODONE 5 MG PO (10:11)
[2024-10-26] MEDS: OSCAL 500 + D 500 MG PO (10:11)
[2024-10-26] MEDS: CYMBALTA DELAYED RELEASE 20 MG PO (10:12)
[2024-10-26] MEDS: ELIQUIS 5 MG PO (10:12)
[2024-10-26] MEDS: TRANDATE 100 MG PO (10:12)
[2024-10-26] MEDS: DELTASONE 40 MG PO (10:12)
[2024-10-26] MEDS: LIDOCAINE 4% PATCH 1 PATCH TOPICAL (10:19)
[2024-10-26] MEDS: NEURONTIN 300 MG PO ×2 (10:20→18:13)
[2024-10-26] MEDS: PROTONIX 40 MG PO (10:20)
[2024-10-26] MEDS: NORVASC 5 MG PO (10:20)
[2024-10-26] MEDS: MUCINEX 1200 MG PO (10:20)
[2024-10-26] MEDS: LIORESAL 5 MG PO ×2 (10:20→18:12)
[2024-10-26 11:00] VITALS: BP 144/81
[2024-10-26] MEDS: LASIX 40 MG IV (14:44)
[2024-10-26 15:10] VITALS: BP 138/78
[2024-10-26] MEDS: SENOKOT-S 1 TABLET PO (18:13)
== END 2024-10-26 18:49 | DRG 871 ==
LOC: 3 WEST ACU 14:33
PROVIDERS: ADMITTING PHYSICIAN Internal Medicine; ATTENDING PHYSICIAN Hospitalist; CONSULT PHYSICIAN Internal Medicine Critical Care Medicine; EMERGENCY PHYSICIAN Emergency Medicine
DX: A41.9 Sepsis, unspecified organism (principal); I50.31 Acute diastolic (congestive) heart failure; J18.9 Pneumonia, unspecified organism; J96.01 Acute respiratory failure with hypoxia; J44.1 Chronic obstructive pulmonary disease with (acute) exacerbation; J96.12 Chronic respiratory failure with hypercapnia; J44.0 Chronic obstructive pulmonary disease with (acute) lower respiratory infection; I48.91 Unspecified atrial fibrillation; Z79.01 Long term (current) use of anticoagulants; I11.0 Hypertensive heart disease with heart failure; E78.2 Mixed hyperlipidemia; M79.7 Fibromyalgia; E66.9 Obesity, unspecified; Z68.32 Body mass index [BMI] 32.0-32.9, adult; Z11.52 Encounter for screening for COVID-19; G62.9 Polyneuropathy, unspecified; M19.90 Unspecified osteoarthritis, unspecified site; Z66 Do not resuscitate; B97.4 Respiratory syncytial virus as the cause of diseases classified elsewhere; K59.00 Constipation, unspecified; Z79.899 Other long term (current) drug therapy; Z79.51 Long term (current) use of inhaled steroids; D64.9 Anemia, unspecified; G89.29 Other chronic pain; Z82.49 Family history of ischemic heart disease and other diseases of the circulatory system; Z90.710 Acquired absence of both cervix and uterus; Z99.81 Dependence on supplemental oxygen
CPT/HCPCS: 71045; 71275; 80048; 80053; 82805; 83605; 83735; 83880; 84145; 84484; 85025; 85027; 87040; 87070; 87502; 87807; 87811; 92610; 93005; 93306; 94640; 96361; 96365; 96367; 96375; 97162; 97166; 99285; Q9967

== ENCOUNTER → 2024-11-02 10:32 | Outpatient (REF) | payer MEDICARE, OTHER, SELFPAY ==
[2024-11-02 11:03] LABS: % Eosinophils 0.1 % (0-6); % Immature Granulocytes 0.6 % (0-0.5); % Lymphocytes 22.8 % (20.5-51.1); % Monocytes 10.5 % (1.7-9.3); Absolute Lymphocytes 1.6 10^3/uL (1.2-3.4); Absolute Monocytes 0.8 10^3/uL (0.1-0.6); Absolute Neutrophils 4.7 10^3/uL (1.4-6.5); Hematocrit 30.5 % (37.0-47.0); Hemoglobin 9.7 g/dL (12.0-16.0); Mean Corp Hgb Conc. 31.8 g/dL (33.0-37.0); Mean Corpuscular Hgb 27.2 pg (27.0-31.0); Mean Corpuscular Volume 85.7 fL (81.0-99.0); Nucleated Red Blood Cells % 0 %; Platelet Count 203 10^3/uL (130-400); Red Blood Cell Count 3.56 10^6/uL (4.20-5.40); Red Cell Dist. Width 14.7 % (11.5-14.5); White Blood Cell Count 7.1 10^3/uL (4.8-10.8)
[2024-11-02 11:49] LABS: Blood Urea Nitrogen 20 mg/dl (7-17); Calcium 8.8 mg/dl (8.4-10.2); Carbon Dioxide 36 mmol/L (22-30); Chloride 95 mmol/L (98-107); Glucose 104 mg/dl (70-99); Magnesium 2.1 mg/dl (1.6-2.3); Potassium 4.3 mmol/L (3.5-5.1); Sodium 134 mmol/L (135-145); eGFR > 60.00
== END ==
LOC: OLABN 10:32
PROVIDERS: ATTENDING PHYSICIAN Student in an Organized Health Care Education/Training Program
DX: I10 Essential (primary) hypertension (principal); J20.9 Acute bronchitis, unspecified; I50.31 Acute diastolic (congestive) heart failure
CPT/HCPCS: 36415; 80048; 83735; 85025

== ENCOUNTER 2025-04-16 19:15 | Inpatient (IN) | payer MEDICARE, OTHER, SELFPAY ==
[2025-04-16] VITALS (7 sets, daily range): BP systolic 119–153; BP diastolic 64–95; BMI 31.7; BMI 31.4
--- NOTE | 2025-04-16 17:04 | ED.GENMED ---
History of Present Illness
<Grant Bhakta PA-C - Last Filed: 04/18/25 11:04>
General
Chief Complaint: Breathing Problem
Source: patient and records
Time Seen by Provider: 04/16/25 16:56
History of Present Illness
History of Present Illness:
89-year-old female with past medical history of COPD, atrial fibrillation, CHF, hypertension and hyperlipidemia presenting to the ER from [facility] for evaluation of gradually worsening shortness of breath over the last 2 to 3 days, usually is
on 2 to 3 L via nasal cannula, currently on 6 L for EMS. Patient did receive an albuterol treatment around 3:00 this afternoon but without much relief. Patient's history is somewhat limited but is currently denying any chest pain, palpitations,
diaphoresis. She does note chronic lower extremity edema which seems to be right around her baseline. She is unaware of any fevers or infectious symptoms. She denies any known sick contact
Past History
<Grant Bhakta PA-C - Last Filed: 04/18/25 11:04>
Past History
ED Past Medical History: Arrthythmia, CHF, COPD, HTN, Hypercholesterolemia and Other (Chronic back pain)
ED Past Surgical History: Orthopedic (Right knee surgery)
Social History
Tobacco: Non-smoker
Alcohol: Daily
Drug: None
Personal: Single
Living: alone
Employment: Not employed
Review of Systems
<Grant Bhakta PA-C - Last Filed: 04/18/25 11:04>
Review of Systems
All Other Systems: ROS reviewed and negative except as documented in HPI and ROS
Phy Exam
<Grant Bhakta PA-C - Last Filed: 04/18/25 11:04>
Physical Exam
Physical Exam:
GENERAL: Alert , in no apparent distress
HEAD: Normocephalic atraumatic
EYE: conjunctiva clear
NECK: Supple
ENT: o/p clr, mmm.
CARDIAC: Irregularly irregular rate and rhythm, rates as high as 110 bpm
LUNGS: Audible expiratory wheeze without stethoscope, increased respiratory rate, accessory muscle use, speaking full sentences but does have 1 sentence dyspnea
NEUROLOGICAL: Alert and oriented
SKIN: Warm and dry, skin intact.
MUSCULOSKELETAL: well perfused. Nonpitting edema below the knees
PSYCH: Normal and appropriate interaction.
Scores
<Grant Bhakta PA-C - Last Filed: 04/18/25 11:04>
Heart Failure Risk
Heart Failure Risk Score: Yes
History of Stroke or TIA: No
History of intubation for respiratory distress: No
Heart rate on ED arrival >/= 110: Yes
SaO2 <90% on arrival on room air: Yes
HR >/=110 during 3min walk test (or too ill to perform test): Yes
ECG has acute ischemic changes: No
Urea >/=12mmol/L (BUN 33.6mg/dL): No
Serum CO2>/=35mmol/L: Yes
Troponin I or T elevated to UT Level (0.4mg/dL): No
NT-proBNP >/=5,000ng/L (5,000pg/ml): No
HF Risk Score: 5
Admission Status: VERY HIGH RISK 39.8% Consider admission to hospital
Heart Score for Chest Pain Patients
STEMI patient?: Not applicable
Withdrawal Assessment of Alcohol
Withdrawal Assessment Completed?: Not applicable
Course
<Grant Bhakta PA-C - Last Filed: 04/18/25 11:04>
Orders/Labs/Results
Orders:
Orders
04/16/25 Breakfast
Sodium, 2 Gram
At Your Request: Full Participation
04/16/25 16:53
Electrocardiogram (*1) Urgent
Reason for Study: Other
Other Reason for Exam: Respiratory Distress
Cardiac Monitoring- Treatment ONCE
IV Insert/Care/Rem.- Treatment PRN
04/16/25 16:54
EKG- Treatment ONCE
04/16/25 17:01
Portable Chest Xray [CR Chest Portable - 1 View] Urgent
Comment:
Reason For Exam: Shortness of breath
Reason Study Needs to be Portable: Patient Unstable
04/16/25 17:02
Ipratropium/Albuterol Sulfate [Duoneb] 3 ml INH R NOW ONE
MethylPREDNISolone PF [Solu-Medrol Pf] 40 mg IV NOW STA
04/16/25 17:03
Complete Blood Count/With Diff Urgent
Comprehensive Metabolic Panel Urgent
Ferritin Urgent
Comment: ADD ON
Folate Urgent
Comment: ADD ON
Iron Urgent
Comment: ADD ON
NT-proBNP Urgent
Total Iron Binding Urgent
Comment: ADD OB
Troponin I Urgent
Vitamin B12 Urgent
Comment: ADD ON
04/16/25 17:19
COVID-19 Antigen Urgent
Source: Nasal Swab
Influenza A+B Rapid Molecular Urgent
FELICITY Source: Nasal Swab
Specimen Description:
04/16/25 17:35
Furosemide [Lasix] 40 mg IV NOW STA
04/16/25 17:45
Albuterol Sulfate [Ventolin Nebules] 10 mg INH R NOW STA
04/16/25 18:51
Admit/Transfer Patient As Directed
Co-Sign Provider:
Level of Care: Inpatient admission
Assign to:: Telemetry
Physician / Group: Htay
Diagnosis: Hypoxia, COPD Exacerbation
Reason for Telemetry: Arrhythmia
Date to Stop Telemetry: 04/19/25
Time to Stop Telemetry: 11:00
Reason for Hospitalization: steroids, nebs, oxygen
Expected length of stay greater than two midnights?: Yes
ELOS- Estimated Length of Stay in days: 3
I certify the patient meets the requirements for IP care: Yes
04/16/25 18:52
PRN Pain Medication Management As Directed
May give lesser potent ordered pain med per pt: Yes
preference::
Protocol:: Medication orders for pain may be administered in a
manner that supports deferring to patient preference
when the pt is:
- Requesting an ordered lesser potent pain medication.
Least to most potent pain medications are defined
as: acetaminophen < NSAID < tramadol < opioids
(morphine, oxycodone, hydromorphone).
- Requesting a lesser dose of the same medication IF
ORDERED.
- Requesting a less intrusive route of administration
if both routes are prescribed by the provider (PO <
IV).
04/16/25 18:54
Code Status As Directed
Resuscitation Status: Do not resuscitate
Reached after discussion with pt or family/Healthcare POA: Yes
DNR Bracelet Application ONCE
04/16/25 20:25
Acetaminophen [Tylenol] 650 mg PO Q4HPRN PRN mild pain/fever
Apixaban [Eliquis] 2.5 mg PO BID
Budesonide [Pulmicort] 0.5 mg INH R BID
Guaifenesin [Mucinex] 600 mg PO Q12
Ipratropium/Albuterol Sulfate [Duoneb] 3 ml INH R Q4HPRN PRN
Ipratropium/Albuterol Sulfate [Duoneb] 3 ml INH R QID
Labetalol [Trandate] 100 mg PO BID
Oxycodone [Roxicodone] 5 mg PO DAILYPRN PRN moderate pain
04/16/25 20:25
Activity As Directed
Activity Level: Out of Bed-Early Mobility
With Assistance
Buprenorphine Patch Confirmation [phone]
I&O [Intake/ Output] As Directed
Frequency: q12h
Vital Signs As Directed
Frequency: Per unit guidelines
Weight As Directed
Frequency: Daily
Oxygen Therapy [O2 Therapy] [RESP] Routine
Titrate/Wean O2 to maintain O2 sat greater than (%): 88
Pulse Ox/cont/shift [RESP] Routine
Quantity: 1
Rx Incentive Spirometry [RESP] Routine
Frequency: q1h while awake
04/16/25 22:00
Baclofen [Lioresal] 5 mg PO TID
Gabapentin [Neurontin] 300 mg PO TID
04/17/25 06:00
Dexamethasone Sod Phosphate [Decadron] 4 mg IV Q12H
04/17/25 07:43
Basic Metabolic Panel IN AM
Complete Blood Count/No Diff IN AM
Magnesium IN AM
04/17/25 08:00
Amlodipine [Norvasc] 5 mg PO DAILY
Duloxetine Delayed Release [Cymbalta Delayed Release] 20 mg PO DAILY
Lidocaine [Lidocaine 4% Patch] 1 patch TOPICAL DAILY
Apply Lidocaine patch(s) to:: Right Scapula
Oxycodone [Roxicodone] 5 mg PO DAILY
04/17/25 18:00
Docusate W/Senna [Senokot-S] 2 tablet PO QPM
04/19/25 11:00
DC Protocol for Telemetry ONCE
04/22/25 08:00
Pt Own Bupren Patch 7.5MCG/Hr [Butrans 7.5 Mcg/Hr Patch Patient Own] 1 patch TRANSDERM TH
Remove Pt Own Buprenorph Patch [Remove Pt Own Butrans Patch] See Dose Instructions REMOVE Q7D
Abnormal Lab Results
04/16/25
17:03
RBC 3.71 L 10^6/uL
(4.20-5.40)
Hgb 9.8 L g/dL
(12.0-16.0)
Hct 32.7 L %
(37.0-47.0)
MCH 26.4 L pg
(27.0-31.0)
MCHC 30.0 L g/dL
(33.0-37.0)
RDW 15.7 H %
(11.5-14.5)
MPV 10.8 H fL
(7.4-10.4)
Absolute Neuts (auto) 7.5 H 10^3/uL
(1.4-6.5)
Absolute Lymphs (auto) 1.0 L 10^3/uL
(1.2-3.4)
Absolute Monos (auto) 0.9 H 10^3/uL
(0.1-0.6)
Neutrophils % 78.4 H %
(42.2-75.2)
Lymphocytes % 9.9 L %
(20.5-51.1)
Monocytes % 9.4 H %
(1.7-9.3)
Sodium 133 L mmol/L
(135-145)
Chloride 92 L mmol/L
(98-107)
Carbon Dioxide 36 H mmol/L
(22-30)
Glucose 149 H mg/dl
(70-99)
% Saturation 15 L %
(20-50)
04/16/25 17:03
04/16/25 17:03
Vital Signs
Initial and Last Documented VS:
Initial Vital Signs
Temp Pulse Resp BP Pulse Ox
98.7 F 107 22 148/95 99
04/16/25 16:49 04/16/25 16:49 04/16/25 16:49 04/16/25 16:49 04/16/25 16:49
Last Documented Vital Signs
Temp Pulse Resp BP Pulse Ox
98.5 F 110 18 156/80 97
04/18/25 08:00 04/18/25 08:42 04/18/25 08:42 04/18/25 08:00 04/18/25 08:42
<Helena Cifuentes MD - Last Filed: 04/16/25 19:00>
Orders/Labs/Results
Orders:
Orders
04/16/25 Breakfast
Sodium, 2 Gram
At Your Request: Full Participation
04/16/25 16:53
Electrocardiogram (*1) Urgent
Reason for Study: Other
Other Reason for Exam: Respiratory Distress
Cardiac Monitoring- Treatment ONCE
IV Insert/Care/Rem.- Treatment PRN
04/16/25 16:54
EKG- Treatment ONCE
04/16/25 17:01
Portable Chest Xray [CR Chest Portable - 1 View] Urgent
Comment:
Reason For Exam: Shortness of breath
Reason Study Needs to be Portable: Patient Unstable
04/16/25 17:02
Ipratropium/Albuterol Sulfate [Duoneb] 3 ml INH R NOW ONE
MethylPREDNISolone PF [Solu-Medrol Pf] 40 mg IV NOW STA
04/16/25 17:03
Complete Blood Count/With Diff Urgent
Comprehensive Metabolic Panel Urgent
Ferritin Urgent
Comment: ADD ON
Folate Urgent
Comment: ADD ON
Iron Urgent
Comment: ADD ON
NT-proBNP Urgent
Total Iron Binding Urgent
Comment: ADD OB
Troponin I Urgent
Vitamin B12 Urgent
Comment: ADD ON
04/16/25 17:19
COVID-19 Antigen Urgent
Source: Nasal Swab
Influenza A+B Rapid Molecular Urgent
FELICITY Source: Nasal Swab
Specimen Description:
04/16/25 17:35
Furosemide [Lasix] 40 mg IV NOW STA
04/16/25 17:45
Albuterol Sulfate [Ventolin Nebules] 10 mg INH R NOW STA
04/16/25 18:51
Admit/Transfer Patient As Directed
Co-Sign Provider:
Level of Care: Inpatient admission
Assign to:: Telemetry
Physician / Group: Keliny
Diagnosis: Hypoxia, COPD Exacerbation
Reason for Telemetry: Arrhythmia
Date to Stop Telemetry: 04/19/25
Time to Stop Telemetry: 11:00
Reason for Hospitalization: steroids, nebs, oxygen
Expected length of stay greater than two midnights?: Yes
ELOS- Estimated Length of Stay in days: 3
I certify the patient meets the requirements for IP care: Yes
04/16/25 18:52
PRN Pain Medication Management As Directed
May give lesser potent ordered pain med per pt: Yes
preference::
Protocol:: Medication orders for pain may be administered in a
manner that supports deferring to patient preference
when the pt is:
- Requesting an ordered lesser potent pain medication.
Least to most potent pain medications are defined
as: acetaminophen < NSAID < tramadol < opioids
(morphine, oxycodone, hydromorphone).
- Requesting a lesser dose of the same medication IF
ORDERED.
- Requesting a less intrusive route of administration
if both routes are prescribed by the provider (PO <
IV).
04/16/25 18:54
Code Status As Directed
Resuscitation Status: Do not resuscitate
Reached after discussion with pt or family/Healthcare POA: Yes
DNR Bracelet Application ONCE
04/16/25 20:25
Acetaminophen [Tylenol] 650 mg PO Q4HPRN PRN mild pain/fever
Apixaban [Eliquis] 2.5 mg PO BID
Budesonide [Pulmicort] 0.5 mg INH R BID
Guaifenesin [Mucinex] 600 mg PO Q12
Ipratropium/Albuterol Sulfate [Duoneb] 3 ml INH R Q4HPRN PRN
Ipratropium/Albuterol Sulfate [Duoneb] 3 ml INH R QID
Labetalol [Trandate] 100 mg PO BID
Oxycodone [Roxicodone] 5 mg PO DAILYPRN PRN moderate pain
04/16/25 20:25
Activity As Directed
Activity Level: Out of Bed-Early Mobility
With Assistance
Buprenorphine Patch Confirmation BID@[id number]
I&O [Intake/ Output] As Directed
Frequency: q12h
Vital Signs As Directed
Frequency: Per unit guidelines
Weight As Directed
Frequency: Daily
Oxygen Therapy [O2 Therapy] [RESP] Routine
Titrate/Wean O2 to maintain O2 sat greater than (%): 88
Pulse Ox/cont/shift [RESP] Routine
Quantity: 1
Rx Incentive Spirometry [RESP] Routine
Frequency: q1h while awake
04/16/25 22:00
Baclofen [Lioresal] 5 mg PO TID
Gabapentin [Neurontin] 300 mg PO TID
04/17/25 06:00
Dexamethasone Sod Phosphate [Decadron] 4 mg IV Q12H
04/17/25 07:43
Basic Metabolic Panel IN AM
Complete Blood Count/No Diff IN AM
Magnesium IN AM
04/17/25 08:00
Amlodipine [Norvasc] 5 mg PO DAILY
Duloxetine Delayed Release [Cymbalta Delayed Release] 20 mg PO DAILY
Lidocaine [Lidocaine 4% Patch] 1 patch TOPICAL DAILY
Apply Lidocaine patch(s) to:: Right Scapula
Oxycodone [Roxicodone] 5 mg PO DAILY
04/17/25 18:00
Docusate W/Senna [Senokot-S] 2 tablet PO QPM
04/19/25 11:00
DC Protocol for Telemetry ONCE
04/22/25 08:00
Pt Own Bupren Patch 7.5MCG/Hr [Butrans 7.5 Mcg/Hr Patch Patient Own] 1 patch TRANSDERM TH
Remove Pt Own Buprenorph Patch [Remove Pt Own Butrans Patch] See Dose Instructions REMOVE Q7D
Abnormal Lab Results
04/16/25
17:03
RBC 3.71 L 10^6/uL
(4.20-5.40)
Hgb 9.8 L g/dL
(12.0-16.0)
Hct 32.7 L %
(37.0-47.0)
MCH 26.4 L pg
(27.0-31.0)
MCHC 30.0 L g/dL
(33.0-37.0)
RDW 15.7 H %
(11.5-14.5)
MPV 10.8 H fL
(7.4-10.4)
Absolute Neuts (auto) 7.5 H 10^3/uL
(1.4-6.5)
Absolute Lymphs (auto) 1.0 L 10^3/uL
(1.2-3.4)
Absolute Monos (auto) 0.9 H 10^3/uL
(0.1-0.6)
Neutrophils % 78.4 H %
(42.2-75.2)
Lymphocytes % 9.9 L %
(20.5-51.1)
Monocytes % 9.4 H %
(1.7-9.3)
Sodium 133 L mmol/L
(135-145)
Chloride 92 L mmol/L
(98-107)
Carbon Dioxide 36 H mmol/L
(22-30)
Glucose 149 H mg/dl
(70-99)
% Saturation 15 L %
(20-50)
04/16/25 17:03
04/16/25 17:03
Vital Signs
Initial and Last Documented VS:
Initial Vital Signs
Temp Pulse Resp BP Pulse Ox
98.7 F 107 22 148/95 99
04/16/25 16:49 04/16/25 16:49 04/16/25 16:49 04/16/25 16:49 04/16/25 16:49
Last Documented Vital Signs
Temp Pulse Resp BP Pulse Ox
98.5 F 110 18 156/80 97
04/18/25 08:00 04/18/25 08:42 04/18/25 08:42 04/18/25 08:00 04/18/25 08:42
<Grant Bhakta PA-C - Last Filed: 04/18/25 11:04>
MDM/Problems Addressed
Differential Diagnosis Includes:
COPD exacerbation
CHF exacerbation
COVID/flu or other viral etiology
Pneumonia
Pleural effusion
Pneumothorax
MDM/Problems Addressed:
89-year-old female presenting to the ER for evaluation of worsening shortness of breath over the last 2 to 3 days, currently requiring 6 L and still with increased respiratory rate and respiratory drive. Audible wheezing on my exam. Will treat
with DuoNeb and Solu-Medrol. Stat portable chest x-ray ordered. Anticipate admission.
Chronic conditions affecting care: COPD and Other (CHF)
Acute Exacerbation and/or Progression of Chronic Illness: COPD
<Grant Bhakta PA-C - Last Filed: 04/18/25 11:04>
*Radiology
Radiology exam reviewed: preliminary read by ED provider (questionable pneumonia versus vascular congestion)
*Pulse Oximetry
SaO2: 99
Nasal Cannula flow liters per minute: 6
Patient hypoxic: yes
*Rn L And D Interpretation
Rate: tachycardiac
Heart Rate: 110
Rhythm: a-fib
*Critical Care Note
Total Time (30-74mins, 75-104mins- exclusive of procedures): 34
comment:
Critical care statement: A total of 34 minutes of critical care time was provided for this patient. This includes management of unstable vital signs, evaluation of the patient at bedside, reviewing the patient's pertinent medical records, discussion
with consultants, review of old EKGs and review of pertinent medical records. This time with separate from time utilized to perform the aforementioned documented procedures
Data Reviewed
Review of Other/Old Records Reveals: Labs and Records
Source: patient and records
<Grant Bhakta PA-C - Last Filed: 04/18/25 11:04>
Patient Management
Discussion with other providers: Hospitalist
Escalation/DeEscalation of care consider admission/obs:
Minimal improvement following the DuoNeb. Treated with additional hour-long albuterol nebulizer. Chest x-ray shows likely vascular congestion versus questionable pneumonia however patient is afebrile without cough. Treating with additional Lasix
for suspected CHF exacerbation. Hospitalist team notified and accepts for continued evaluation and treatment.
ED Attending Note
<Grant Bhakta PA-C - Last Filed: 04/18/25 11:04>
-
Portions of this chart may have been created with voice recognition software.� Occasional wrong word or��sound alike� substitutions may have occurred due to the inherent limitations of voice recognition software.
<Helena Cifuentes MD - Last Filed: 04/16/25 19:00>
ED Attending Note
Patient seen and examined by attending physician: Yes
I performed the substantive portion of visit, reviewed & personally made and approve the management plan that is documented in note by myself or NIDA.: Yes
ED Attending Note:
Patient is fully awake, alert but is tachypneic on exam. Currently receiving an albuterol nebulizer. Patient has bilateral crackles and wheezing. Patient has 2+ pitting edema in bilateral lower extremities.
Discharge Plan
Departure
Patient Disposition: Admit
Date of Disposition: 04/16/25
Time of Disposition: 17:47
Presentation/result/management discussed w/ accepting MD/DO: Hospitalist
Discharge Problem:
Acute exacerbation of chronic obstructive pulmonary disease (COPD), Acute exacerbation of CHF (congestive heart failure)
Interventions
Interventions:
*Risk Screen - Suicide Last Done: 04/16/25 16:59
*General Assessment Last Done: 04/16/25 16:56
*Neglect/Abuse Screening Last Done: 04/16/25 16:59
*ED- Fall Risk Assessment Last Done: 04/16/25 16:56
*ED COVID-19 Vaccine History Last Done: 04/16/25 16:56
*ED Influenza Vaccine History Last Done: 04/16/25 16:56
*Nursing Disposition Last Done: 04/16/25 20:20
ED- Cardiac Assessment Last Done: 04/16/25 17:07
ED- Pulmonary Assessment Last Done: 04/16/25 17:07
Discharge Date and Time
Discharge Date/Time: 04/16/25 20:21
[2025-04-16] MEDS: DUONEB 3 ML INH ×2 (17:08→22:09)
[2025-04-16] MEDS: SOLU-MEDROL PF 40 MG IV (17:11)
[2025-04-16 17:13] LABS: Hematocrit 32.7 % (37.0-47.0); Hemoglobin 9.8 g/dL (12.0-16.0); Mean Corp Hgb Conc. 30.0 g/dL (33.0-37.0); Mean Corpuscular Volume 88.1 fL (81.0-99.0); Nucleated Red Blood Cells % 0 %; Platelet Count 231 10^3/uL (130-400); Red Cell Dist. Width 15.7 % (11.5-14.5)
[2025-04-16 17:22] LABS: ALT (SGPT) 11 U/L (0-35); AST (SGOT) 23 U/L (14-36); Albumin 4.1 g/dl (3.5-5.0); Alkaline Phosphatase 64 U/L (38-126); Blood Urea Nitrogen 12 mg/dl (7-17); Calcium 8.7 mg/dl (8.4-10.2); Chloride 92 mmol/L (98-107); Estimated Creatinine Clearance 57 ml/min; Glucose 149 mg/dl (70-99); Potassium 4.4 mmol/L (3.5-5.1); Sodium 133 mmol/L (135-145); Total Protein 7.2 g/dl (6.3-8.2); eGFR > 60.00
[2025-04-16 17:32] LABS: Carbon Dioxide 36 mmol/L (22-30)
[2025-04-16 17:33] LABS: Troponin I < 0.012 ng/ml
[2025-04-16] MEDS: LASIX 40 MG IV (17:50)
--- NOTE | 2025-04-16 17:51 | W.PN.UPDATE ---
Update Note
Progress Note Update
This note serves as an addendum to the H&P by assistant auto center manager Buzz PATEL
HPI�
89F Obese Res of [place] HX chr O2 3 L dependent COPD, Prx AF on Eliquis, hypertension, hyperlipidemia, Fibromyalgia seen at ER:
- for evaluation of gradually worsening shortness of breath over the last 2 to 3 days
- usually is on 2 to 3 L via nasal cannula, currently on 6 L for EMS.
- did receive an albuterol treatment around 3:00 this afternoon but without much relief.
- chronic lower extremity edema which seemsat her baseline.
ROS
- denying any chest pain, palpitations, diaphoresis.
- unaware of any fevers or infectious symptoms.
- denies any known sick contact
Relevant VS
04/16/25
16:49
Temp 98.7 F
Pulse 107
Resp Rate 22
Blood pressure 148/95
SaO2 99
Nasal Cannula flow liters per minute 6
General: obese
HEENT: Throat clear. PERRLA Normocephalic atraumatic
NECK: Supple. No JVD Carotid Bruits
RESPIRATORY: diffuse exp b/l wheeze
CVS: S1, S2 irregularly irregular tachy. No murmur, rub or gallop.
ABDOMEN: Soft, non-tender. No distension. BS+/normal.
EXTREMITIES: under compression wrapping in both Cristóbal
DOT ETCHER APPRENTICE: AOx3 conversant coherent
Relevant Data
11/02/24 04/16/25
05:40 17:03
WBC 9.6
Hgb 9.7 L 9.8 L
Plt Count 203 231
Sodium 133 L
Potassium 4.4
Chloride 92 L
Carbon Dioxide 36 H 36 H
BUN 20 H 12
Creatinine 0.7 0.6
eGFR > 60.00 > 60.00
10/24/24 04/16/25
09:19 17:03
Troponin I < 0.012
Muj-S-Tblkmapkhmz Pept 1879 1939
10/24/24 10/26/24
VBG pH 7.40 7.37
VBG pCO2 60 H 67 H
VBG pO2 160 H 55 H
VBG HCO3 37.2 H 38.7 H
Pending final CXR report
CT Chest 10/24/24
Respiratory motion degradation.
Prominent misregistration artifact especially in the lower lobes beyond the segmental level.
There is also a misregistration artifact involving the proximal segmental division in the left upper lobe. Therefore, these divisions are nondiagnostic.
No central pulmonary embolism identified.
No evidence to suggest right ventricular heart strain.
There appears to be left ventricular hypertrophy with myocardial thickening.
Pulmonary artery branching order level of the most proximal pulmonary embolism: N/A Trace right pleural effusion.
Mild parenchymal opacity in the posterior and posterolateral right costophrenic angle, atelectasis versus pneumonia.
10/26/24 TTE
- No regional wall motion abnormalities are seen.
- LVEF 55-60%
- Diastolic function indeterminate due to atrial fibrillation.
- Mitral sclerosis without stenosis.
- Mild to moderate mitral regurgitation.
- Indexed LA volume is moderately abnormal (42-48 mL/m2).
-Mild to moderate aortic stenosis.
Peak/mean gradients across the aortic valve are 29/17 mmHg. aortic valve area 0.9 cm2 using LVOT diameter of 1.9 cm. Trace aortic regurgitation is seen.
- Moderate tricuspid regurgitation.
- Estimated PASP 53 mmHg assuming a right atrial pressure of 3 mmHg.
- Dilated right atrium.
- Normal right ventricular size and function.
Since echocardiogram May 2023, aortic stenosis has worsened slightly from
mild to mild/moderate. Mean pressure gradient is increased from 10 mmHg to 17
mmHg.
Last hospitalist admission:Date of Admission: 10/24/24 -date of Discharge: 10/26/24
-Discharge Diagnosis/Procedures:
Acute COPD flare- Acute bronchitis.
Mild acute diastolic congestive heart failure.
ASSESSMENT & PLAN
Pending Rx reconciliation
Acute on chronic hypoxic hypercapnic RF - requiring 6L NC O2 compare to baseline 3 L O2
Diff Etiology : Acute on Chr O2 dependent COPD flare with bronchospasm
+/_ acute mild diastolic HF s/p IV lasix 40 x 1 at ER
Questionable OHS ?
Chr metabolic alkalosis due to compensation for chronic hypercapnia
- Nebs qid and PRN
- IV Decadron 4 mg BID
- No indication for ABx
- FU final CXR report to consider PO azithromycin for anti-inflammatory effects
- VBG if any acute AMS
- cont O2 supplementation as necessary pulse ox 92%
- Incentive Spirometer Acapella
- To consider Pul consult if no clinical progress
Prx AF on chronic Eliquis
- [id number] score = 4 to 5 (age, greater than 75, female, hypertension and possible heart failure)
- c/w PAPER COUNTER chronic Eliquis
- c/w PAPER COUNTER labetalol + amlodipine with holding parameters
Valvular heart dz: ref to TTE in October 2024
Mild to moderate with AoVA 1.9 cm
- Mitral sclerosis without stenosis.
- Mild to moderate MR
- Moderate tricuspid regurgitation.
- Estimated PASP 53 mmHg assuming a right atrial pressure of 3 mmHg.
- Dilated right atrium.
Chronic conditions PAPER COUNTER:
Aortic valve stenosis:
Benign hypertension
HX mixed hyperlipidemia
HX Fibromyalgia
Neuropathy
Chr pain on chr gabapentin, Cymbalta, Oxycodone scheduled and prn, baclofen, Tylenol prn
DVT Px: chr Eliquis
DNR
IP TLM
[2025-04-16 17:56] LABS: COVID-19 Antigen Negative (Negative)
[2025-04-16] MEDS: VENTOLIN NEBULES 10 MG INH (17:59)
--- NOTE | 2025-04-16 18:02 | HPS.HSE ---
Family Physician
-
Family Physician: Ryland Heath DO
Chief Complaint
-
Shortness of Breath
History of Present Illness
Patient is an 89 y/o female past medical history of COPD on chronic oxygen, chronic heart failure, permanent atrial fibrillation, and hypertension who presents with shortness of breath. Patient resides at [facility] and noted staff have been
increasing her supplemental oxygen over the past few days. Patient notes very junky sounding cough. She states she feels mucus rattling her chest but is unable to bring up any mucus. She denies any chest pain. She notes chronic lower extremity
which is at baseline. She denies any fevers, sweats or chills.
Medical History
Past Medical History
Past Medical History: Reports Other
Additional Past Medical History:
Chronic Hypoxic Respiratory Failure
COPD
Chronic HFpEF
Permanent Atrial Fibrillation
Essential Hypertension
Hyperlipidemia
Chronic Anemia
Chronic Pain with Opioid Dependence
Fibromyalgia
Peripheral Neuropathy
Arthritis
Past Surgical History: Reports Other
Additional Past Surgical History:
Hysterectomy
Hemorrhoidectomy
Right Knee Arthroscopy
Laminectomy
Social History
Tobacco: Non-smoker
Living: Longterm
Family History
Family History: Not pertinent
Allergies / Home Medications
Allergies reflects when Allergies were last updated in [facility].
Home Medications with original date entered in [facility]
Allergy/Medication List:
Allergies
Allergy/AdvReac Type Severity Reaction Status Date / Time
No Known Allergies Allergy Verified 04/16/25 16:54
Home Medications
amlodipine 5 mg tablet (Norvasc) 5 mg PO DAILY Blood Pressure 02/19/22
buprenorphine 7.5 mcg/hour weekly transdermal patch (Butrans) 1 patch transdermal TH Pain 02/19/22
duloxetine 30 mg capsule,delayed release (Cymbalta) 20 mg PO DAILY Mental Health 02/19/22
acetaminophen 325 mg tablet 650 mg PO Q4H PRN mild pain/fever 10/24/24
albuterol sulfate 90 mcg/actuation aerosol inhaler 2 puff inhalation Q6H PRN sob 10/24/24
apixaban 2.5 mg tablet (Eliquis) 2.5 mg PO BID Blood Clot Prevention/Tx 10/24/24
baclofen 5 mg tablet 5 mg PO TID Muscle Spasms 10/24/24
bisacodyl 10 mg rectal suppository 10 mg W[place] DAILY PRN 3 days no bm, MOM is ineffective 10/24/24
budesonide 0.5 mg/2 mL suspension for nebulization 0.5 mg inhalation R BID Lung/Breathing Issues 10/24/24
calcium 500 mg (as carbonate)-vitamin D3 10 mcg (400 unit) tablet (Oyster Shell Calcium-Vitamin D3) 1 tab PO DAILY Supplement 10/24/24
fluticasone propionate 50 mcg/actuation nasal spray,suspension 1 spray intranasal BID Congestion 10/24/24
gabapentin 300 mg capsule 300 mg PO TID Pain 10/24/24
ipratropium 0.5 mg-albuterol 3 mg (2.5 mg base)/3 mL nebulization soln 3 ml inhalation R TID Lung/Breathing Issues 10/24/24
labetalol 100 mg tablet 100 mg PO BID Blood Pressure 10/24/24
latanoprost 0.005 % eye drops 1 drp BOTH EYES HS Eye Condition 10/24/24
lidocaine 4 % topical patch 1 patch topical DAILY Pain 10/24/24
magnesium hydroxide 400 mg/5 mL oral suspension (Milk of Magnesia) 2,400 mg PO HSPRN PRN constipation 10/24/24
naloxone 4 mg/actuation nasal spray (Narcan) 1 spray intranasal PRN PRN opioid overdose 10/24/24
sennosides 8.6 mg-docusate sodium 50 mg tablet (Senna Plus) 2 tab-cap PO QPM Constipation 10/24/24
oxycodone 5 mg tablet 5 mg PO DAILY Pain #2 tabs 10/26/24
oxycodone 5 mg tablet 5 mg PO DAILYPRN PRN moderate pain #2 tabs 10/26/24
prednisone 10 mg tablet See Rx Instructions .Route .COMPLEX #45 tabs 10/26/24
Review of Systems
-
A 12 point ROS was completed and negative except as noted: Yes
Constitutional: Denies Fever
Respiratory: Reports See HPI
Cardiac: Denies Chest Pain or Palpitations
Physical Exam
Vital Signs
Vital Signs
Temp Pulse Resp BP Pulse Ox
98.7 F 103 21 136/67 99
04/16/25 16:49 04/16/25 17:50 04/16/25 17:06 04/16/25 17:50 04/16/25 17:10
Physical Exam
General: Well Developed, Well Nourished and Conversant
HEENT: Anicteric, Moist mucous membranes and Oxygen (Nasal Cannula, Currently receiving hour long nebulizer)
Respiratory: Non Labored Respirations and Other (Diffuse wheezes and rhonchi)
Cardiac: S1/S2 and Irregular Rhythm; No Tachycardia
GI: Soft and Non Tender
Rectal: Deferred by Provider
Musculoskeletal: No Clubbing, No Cyanosis and Other (Wraps in place to bilateral lower extremities)
Skin: Warm and Dry
Neuro: Awake, Alert and Nonfocal/grossly intact
Psych: Calm
Laboratory Results
-
04/16/25 17:03
04/16/25 17:03
Laboratory Results
Total Bilirubin 0.7 mg/dl (0.2-1.3) 04/16/25 17:03
AST 23 U/L (14-36) 04/16/25 17:03
ALT 11 U/L (0-35) 04/16/25 17:03
Alkaline Phosphatase 64 U/L (38-126) 04/16/25 17:03
Troponin I < 0.012 ng/ml 04/16/25 17:03
Data Reviewed
-
Lab Data: Labs Reviewed by me
Impression/Plan
-
Acute on Chronic Hypoxic Respiratory Failure secondary to Acute COPD Exacerbation
-Continue supplemental oxygen with plans to wean back to baseline with goal pulse ox 88-95% per prior pulmonary notes
-Continue Decadron 4mg q12h
-Continue DuoNeb QID and PRN
-Continue Budesonide Nebs
-Continue Mucinex
-Await official report on CXR
Chronic HFpEF
-Patient given dose of Lasix on emergency department
-Monitor Daily Weights
Permanent Atrial Fibrillation
-Continue Eliquis for anticoagulation
Essential Hypertension
-Continue amlodipine and labetalol
Chronic Anemia
-Hgb stable compared to previous
-Check iron studies
Chronic Pain with Opioid Dependence
-Continue buprenorphine patch and oxycodone
Peripheral Neuropathy / Fibromyalgia
-Continue gabapentin and duloxetine
DVT proph: Eliquis
Code Status: DNR
[2025-04-16 19:02] LABS: Iron 62 ug/dl (37-170)
[2025-04-16 19:11] LABS: Total Iron Binding Capacity 392 ug/dl (265-497)
[2025-04-16 19:37] LABS: Ferritin 14.5 ng/ml (11.1-264.0)
[2025-04-16 20:08] LABS: Folate 6.6 ng/ml (2.76-20); Vitamin B12 598 pg/ml (239-931)
[2025-04-16] MEDS: NEURONTIN 300 MG PO (21:16)
[2025-04-16] MEDS: LIORESAL 5 MG PO (21:16)
[2025-04-16] MEDS: TRANDATE 100 MG PO (21:16)
[2025-04-16] MEDS: MUCINEX 600 MG PO (21:16)
[2025-04-16] MEDS: ELIQUIS 2.5 MG PO (21:16)
[2025-04-16] MEDS: PULMICORT 0.5 MG INH (22:09)
[2025-04-17] VITALS (8 sets, daily range): BP systolic 135–155; BP diastolic 70–84; O2SAT 83–92; BMI 31.1
[2025-04-17] MEDS: DECADRON 4 MG IV (05:18)
[2025-04-17] MEDS: PULMICORT 0.5 MG INH ×2 (08:10→19:59)
[2025-04-17] MEDS: DUONEB 3 ML INH ×4 (08:10→19:59)
[2025-04-17] MEDS: TRANDATE 100 MG PO ×2 (08:45→19:21)
[2025-04-17] MEDS: ELIQUIS 2.5 MG PO ×2 (08:45→19:22)
[2025-04-17] MEDS: NEURONTIN 300 MG PO ×3 (08:46→21:06)
[2025-04-17] MEDS: MUCINEX 600 MG PO ×2 (08:46→19:21)
[2025-04-17] MEDS: NORVASC 5 MG PO (08:46)
[2025-04-17] MEDS: LIDOCAINE 4% PATCH 1 PATCH TOPICAL (08:46)
[2025-04-17] MEDS: LIORESAL 5 MG PO ×3 (08:46→21:06)
[2025-04-17] MEDS: ROXICODONE 5 MG PO ×2 (08:48→17:27)
[2025-04-17 08:54] LABS: Hematocrit 28.7 % (37.0-47.0); Hemoglobin 8.9 g/dL (12.0-16.0); Mean Corp Hgb Conc. 31.0 g/dL (33.0-37.0); Mean Corpuscular Volume 86.2 fL (81.0-99.0); Platelet Count 225 10^3/uL (130-400); Red Cell Dist. Width 15.4 % (11.5-14.5)
[2025-04-17] MEDS: CYMBALTA DELAYED RELEASE 20 MG PO (09:01)
[2025-04-17 09:21] LABS: Blood Urea Nitrogen 12 mg/dl (7-17); Calcium 8.4 mg/dl (8.4-10.2); Chloride 92 mmol/L (98-107); Estimated Creatinine Clearance 56 ml/min; Glucose 134 mg/dl (70-99); Magnesium 1.9 mg/dl (1.6-2.3); Potassium 3.7 mmol/L (3.5-5.1); Sodium 135 mmol/L (135-145); eGFR > 60.00
[2025-04-17 09:31] LABS: Carbon Dioxide 37 mmol/L (22-30)
[2025-04-17] MEDS: ZITHROMAX 500 MG PO (11:17)
--- NOTE | 2025-04-17 13:14 | W.PN.UPDATE ---
Update Note
Progress Note Update
I saw and evaluated the patient with the residents.
HPI: 89 y/o female past medical history of COPD on chronic oxygen at around 3L [place], chronic heart failure, permanent atrial fibrillation, and hypertension; p/w shortness of breath. Patient resides at [facility] and staff noted her increasing O2
requirement.
A/P:
# Acute on Chronic Hypoxic Respiratory Failure, Possible Acute COPD Exacerbation and R loculated right pleural effusion which has progressed.
Continue supplemental oxygen, now on 5L [place], with plans to wean back to baseline at around 2-3L [place]
No wheezing, taper Decadron from 4 mg Q12h to 2 mg Q12H
Continue DuoNeb QID and PRN
Continue BEE WORKER Budesonide Nebs
Continue Mucinex
Added azithromycin 500 mg x5 days
CXR noted Small loculated right pleural effusion that has Progressed, IR CS for thora
# Chronic HFpEF
Patient given dose of Lasix on emergency department
Monitor Daily Weights
# Permanent Atrial Fibrillation
Continue Eliquis for anticoagulation
# Essential Hypertension
Continue amlodipine and labetalol
# Chronic Anemia
Hgb stable compared to previous
iron studies noted
low ferritin level, can started IV iron while in the hospital
# Chronic Pain with Opioid Dependence
Continue buprenorphine patch and oxycodone
# Peripheral Neuropathy / Fibromyalgia
Continue gabapentin and duloxetine
DVT proph: Eliquis
Code Status: DNR
total time 51 min
--- NOTE | 2025-04-17 13:30 | CM ---
Met with patient who is a shelter resident at [facility]. 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 She also has a w/ch if needed. No additional skilled services provided. PCP is Dr. Ryland Heath. Discharge POC: Return
to [facility] for resumption of LTC.
[2025-04-17] MEDS: FERRLECIT 110 MG IV (13:58)
--- NOTE | 2025-04-17 14:30 | W.PN.HOSP.TC ---
Today's Communication/Plan
-
IR consult for thoracocentesis
Dexamethasone dose changed to 2 mg
Add azithromycin.
Assessment / Plan
Assessment / Plan
Cmlujhvvxd-25-jiab-old female with PMHx significant for COPD, home O2 dependent-2 L at baseline, chronic HFpEF, permanent A-fib, hypertension, hyperlipidemia, anemia of chronic disease, chronic pain with opioid dependence, fibromyalgia, peripheral
neuropathy, osteoarthritis presents to the ER for evaluation of cough and shortness of breath with junky sputum. She is diagnosed to be in COPD exacerbation with acute bronchitis.
Plan-
Acute on chronic hypercapnic respiratory failure-
Patient's oxygen requirement went up from baseline 2 L to 6 L at home.
Suspected mild acute exacerbation of heart failure with possible fluid overload from the chest x-ray, and patient was given single dose of IV Lasix in the ER.
Chronic metabolic alkalosis-compensated treated chronic hypercapnia
Patient is on DuoNebs as needed,
IV Decadron reduced to 2 mg twice daily
Chest x-ray has no evidence for pneumonia, no need of antibiotics at this point of time
Added azithromycin for anti-inflammatory effects for 5 days
VBG hypercapnia, about baseline
Currently oxygen requirement down to 5 L nasal cannula flow
Continue incentive spirometry, at [facility], and Mucinex.
Continues to have cough with junky mucus production.
\\Continue home inhaler regimen.
# Small loculated right-sided pleural effusion-
May benefit from thoracocentesis.
IR consulted for routine thoracocentesis.
Thoracocentesis fluid for pH, protein, cell count, cultures.
# Permanent A-fib-
Continue labetalol and amlodipine, holding parameters.
[id number] score at 5
Continue Eliquis
# Acute on chronic HFpEF-
Pleural effusion likely secondary to fluid overload from HFpEF
Weight down by 2 cages s/p 1 round of IV Lasix since admission
Fluid restriction, sodium restriction, monitor daily weights.
GDMT-on metoprolol for now.
# Valvular heart disease-
Mild to moderate aortic stenosis
Mild to moderate MR
Moderate TR
Elevated PASP at 53 mmHg.
Mitral sclerosis without stenosis
#Hypertension-
Continue amlodipine with holding parameters.
# Hyperlipidemia-
Not on any medication
# Chronic pain syndrome, fibromyalgia-
Continue home dose opioid regimen and Butrans patch.
# DVT prophylaxis-continue Eliquis
DNR.
Anticipated Discharge: > 48 hours
Subjective/Interval History
-
Date of Service: April 17, 2025
Currently patient states that her breathing and cough improved however she still feels some mucus stuck in her throat. She also states that her swelling in the legs significantly improved, she used to wear compression stockings but currently she
would not need any.
Objective Data
-
Labs:
Laboratory Results
04/17/25 04/17/25
07:43 14:29
WBC 5.6
Hgb 8.9 L
Hct 28.7 L
Plt Count 225
Sodium 135 Pending
Potassium 3.7
Chloride 92 L
Carbon Dioxide 37 H
BUN 12
Creatinine 0.6
Glucose 134 H
Calcium 8.4
Vital Signs:
Vital Signs
Temp Pulse Resp BP Pulse Ox
97.6 F 97 18 135/70 95
04/17/25 11:19 04/17/25 11:23 04/17/25 11:23 04/17/25 11:19 04/17/25 11:23
I&O
04/16/25 04/17/25 04/18/25
06:59 06:59 06:59
Output Total 500 / 500
Balance -500 / -500
Review of Systems
-
History Source: Patient
Constitutional: Reports No Symptoms
Respiratory: Reports Cough, Trouble Breathing and Wheezing
Cardiac: Reports No Symptoms
Abdomen/GI: Reports No Symptoms
Musculoskeletal: Reports No Symptoms
Skin: Reports No Symptoms
Neuro: Reports No Symptoms
Endocrine: Reports No Symptoms
Allergy / Immunology: Reports No Symptoms
Physical Exam
-
General: No Apparent Distress and Comfortable
HEENT: Atraumatic and Moist Mucous Membranes
Respiratory: Wheezes (Bilateral inspiratory and expiratory wheezes across all lung lobes) and Rhonchi; Negative Rales or Crackles
Cardiac: S1/S2, Irregular Rhythm and Murmur (3/6 systolic murmur best heard in lower sternal border); Negative Rub or Gallop
GI: Soft, Nontender, Nondistended and Normal Bowel Sounds
Musculoskeletal: No Clubbing, No Cyanosis and No Edema
Skin: Warm
Neuro: AO x 3 and No Motor Deficits
Psych: Calm
Data Reviewed
-
Diagnostic Radiology: Image personally visualized and interpreted
Labs: Labs Reviewed by me, Discussed with Physician and Discussed with Patient
[2025-04-17] MEDS: DECADRON 2 MG IV (17:22)
[2025-04-17] MEDS: SENOKOT-S 2 TABLET PO (17:22)
[2025-04-17] MEDS: REMOVE LIDOCAINE PATCH 1 PATCH REMOVE (21:06)
[2025-04-18 03:09] VITALS: BP 157/80
[2025-04-18] MEDS: DECADRON 2 MG IV ×2 (05:21→17:35)
[2025-04-18 06:00] VITALS: BMI 31.6
[2025-04-18 06:33] LABS: Hematocrit 29.6 % (37.0-47.0); Hemoglobin 9.3 g/dL (12.0-16.0); Mean Corp Hgb Conc. 31.4 g/dL (33.0-37.0); Mean Corpuscular Volume 86.3 fL (81.0-99.0); Platelet Count 253 10^3/uL (130-400); Red Cell Dist. Width 15.4 % (11.5-14.5)
[2025-04-18 07:38] LABS: Blood Urea Nitrogen 19 mg/dl (7-17); Calcium 8.7 mg/dl (8.4-10.2); Carbon Dioxide 38 mmol/L (22-30); Chloride 90 mmol/L (98-107); Estimated Creatinine Clearance 57 ml/min; Glucose 127 mg/dl (70-99); Potassium 3.7 mmol/L (3.5-5.1); Sodium 133 mmol/L (135-145); eGFR > 60.00
[2025-04-18 08:00] VITALS: BP 156/80
[2025-04-18] MEDS: PULMICORT 0.5 MG INH ×2 (08:11→19:58)
[2025-04-18] MEDS: DUONEB 3 ML INH ×4 (08:11→19:58)
[2025-04-18] MEDS: ROXICODONE 5 MG PO (09:18)
[2025-04-18] MEDS: ELIQUIS 2.5 MG PO (09:18)
[2025-04-18] MEDS: CYMBALTA DELAYED RELEASE 20 MG PO (09:18)
[2025-04-18] MEDS: TRANDATE 100 MG PO ×2 (09:18→19:35)
[2025-04-18] MEDS: NORVASC 5 MG PO (09:18)
[2025-04-18] MEDS: LIORESAL 5 MG PO ×3 (09:18→21:32)
[2025-04-18] MEDS: MUCINEX 600 MG PO ×2 (09:18→19:36)
--- NOTE | 2025-04-18 09:18 | W.PN.UPDATE ---
Update Note
Progress Note Update
I saw and evaluated the patient with the residents.
HPI: 89 y/o female past medical history of COPD on chronic oxygen at around 3L [place], chronic heart failure, permanent atrial fibrillation, and hypertension; p/w shortness of breath. Patient resides at [facility] and staff noted her increasing O2
requirement.
A/P:
# Acute on Chronic Hypoxic Respiratory Failure, Possible Acute COPD Exacerbation, R loculated right pleural effusion has progressed.
Continue supplemental oxygen, now back to 3L [place] (at baseline)
No wheezing, taper Decadron from 4 mg Q12h to 2 mg Q12H with plan for 5 days course
Continue DuoNeb QID and PRN
Continue MILL WASHER Budesonide Nebs
Continue Mucinex
Added azithromycin 500 mg x5 days
CXR noted small loculated right pleural effusion that has progressed, IR CS for thora
Follow thora labs when available
# Chronic HFpEF
Patient given dose of Lasix on emergency department
Monitor Daily Weights
# Permanent Atrial Fibrillation
Continue Eliquis for anticoagulation
# Essential Hypertension
Continue amlodipine and labetalol
# Chronic Anemia
Hgb stable at 9.3 today
iron studies noted
low ferritin level, started IV iron in the hospital
# Chronic Pain with Opioid Dependence
Continue buprenorphine patch and oxycodone
# Peripheral Neuropathy / Fibromyalgia
Continue gabapentin and duloxetine
DVT proph: Eliquis
Code Status: DNR
Dispo; PT recc LTC/ SNF
[2025-04-18] MEDS: NEURONTIN 300 MG PO ×3 (09:19→21:33)
[2025-04-18] MEDS: ZITHROMAX 500 MG PO (09:19)
[2025-04-18] MEDS: LIDOCAINE 4% PATCH 1 PATCH TOPICAL (09:19)
[2025-04-18 11:51] VITALS: BP 127/73
--- NOTE | 2025-04-18 12:08 | W.PN.HOSP.TC ---
Today's Communication/Plan
-
Continue current medication regimen including IV steroids.
Consider switching to oral prednisone in the a.m. tomorrow.
Awaiting thoracocentesis from IR.
Assessment / Plan
Assessment / Plan
Xcivjdqptv-60-xoll-old female with PMHx significant for COPD, home O2 dependent-2 L at baseline, chronic HFpEF, permanent A-fib, hypertension, hyperlipidemia, anemia of chronic disease, chronic pain with opioid dependence, fibromyalgia, peripheral
neuropathy, osteoarthritis presents to the ER for evaluation of cough and shortness of breath with junky sputum. She is diagnosed to be in COPD exacerbation with acute bronchitis.
Plan-
Acute on chronic hypercapnic respiratory failure-
Patient's oxygen requirement went up from baseline 2 L to 6 L at home.
Suspected mild acute exacerbation of heart failure with possible fluid overload from the chest x-ray, and patient was given single dose of IV Lasix in the ER.
Chronic metabolic alkalosis-compensated treated chronic hypercapnia
Patient is on DuoNebs as needed,
IV Decadron reduced to 2 mg twice daily
Chest x-ray has no evidence for pneumonia, no need of antibiotics at this point of time
Added azithromycin for anti-inflammatory effects for 5 days
VBG hypercapnia, about baseline
Currently oxygen requirement down to 5 L nasal cannula flow
Continue incentive spirometry, at [facility], and Mucinex.
Mucus production improved significantly.
\\Continue home inhaler regimen.
# Small loculated right-sided pleural effusion-
May benefit from thoracocentesis.
IR consulted for routine thoracocentesis.
Thoracocentesis fluid for pH, protein, cell count, cultures.
Awaiting thoracocentesis from IR.
# Permanent A-fib-
Continue labetalol and amlodipine, holding parameters.
[id number] score at 5
Continue Eliquis
# Acute on chronic HFpEF-
Pleural effusion likely secondary to fluid overload from HFpEF
Weight down by 2 cages s/p 1 round of IV Lasix since admission
Fluid restriction, sodium restriction, monitor daily weights.
GDMT-on metoprolol for now.
# Valvular heart disease-
Mild to moderate aortic stenosis
Mild to moderate MR
Moderate TR
Elevated PASP at 53 mmHg.
Mitral sclerosis without stenosis
#Hypertension-
Continue amlodipine with holding parameters.
# Hyperlipidemia-
Not on any medication
# Chronic pain syndrome, fibromyalgia-
Continue home dose opioid regimen and Butrans patch.
# DVT prophylaxis-continue Eliquis
DNR.
Anticipated Discharge: 24 - 48 hours
Subjective/Interval History
-
Date of Service: April 18, 2025
Patient reports to be feeling better, her shortness of breath improved and her cough with expectoration improved.
Overnight she is back on 3 L nasal cannula flow which is close to her home baseline.
Objective Data
-
Labs:
Laboratory Results
04/18/25
05:49
WBC 4.8
Hgb 9.3 L
Hct 29.6 L
Plt Count 253
Sodium 133 L
Potassium 3.7
Chloride 90 L
Carbon Dioxide 38 H
BUN 19 H
Creatinine 0.6
Glucose 127 H
Calcium 8.7
Vital Signs:
Vital Signs
Temp Pulse Resp BP Pulse Ox
98.8 F 104 20 127/73 97
04/18/25 11:51 04/18/25 11:51 04/18/25 11:51 04/18/25 11:51 04/18/25 11:51
I&O
04/17/25 04/18/25 04/19/25
06:59 06:59 06:59
Intake Total 120 / 120
Output Total 500 / 500 400 / 400
Balance -500 / -500 -280 / -280
Review of Systems
-
History Source: Patient
Constitutional: Reports No Symptoms
Respiratory: Reports No Symptoms
Cardiac: Reports No Symptoms
Abdomen/GI: Reports No Symptoms
Genitourinary: Reports No Symptoms
Musculoskeletal: Reports No Symptoms
Skin: Reports No Symptoms
Neuro: Reports No Symptoms
Endocrine: Reports No Symptoms
Hematologic / Lymphatic: Reports No Symptoms
Allergy / Immunology: Reports No Symptoms
Physical Exam
-
General: No Apparent Distress and Comfortable
HEENT: Moist Mucous Membranes
Respiratory: Clear to Auscultation (In bilateral upper lobes.), Rhonchi (Faint in bilateral upper lobes.) and Decreased Breath Sounds (In the right lower lobe); Negative Wheezes, Rales or Crackles
Cardiac: S1/S2 and Irregular Rhythm; Negative Murmur, Rub or Gallop
GI: Soft, Nontender, Nondistended and Normal Bowel Sounds
Genito-urinary: No Costovertebral Tender
Musculoskeletal: No Cyanosis and Other (Trace pedal edema in bilateral lower extremities)
Skin: Warm
Neuro: AO x 3 and No Motor Deficits
Psych: Calm
Data Reviewed
-
Labs: Labs Reviewed by me, Discussed with Physician and Discussed with Patient
[2025-04-18] MEDS: FERRLECIT 110 MG IV (14:07)
[2025-04-18 15:30] VITALS: BP 138/93
[2025-04-18] MEDS: SENOKOT-S 2 TABLET PO (17:35)
[2025-04-18 19:11] VITALS: BP 153/96
[2025-04-18] MEDS: ELIQUIS 5 MG PO (19:36)
[2025-04-18] MEDS: REMOVE LIDOCAINE PATCH 1 PATCH REMOVE (19:36)
[2025-04-18 23:18] VITALS: BP 151/81
[2025-04-19 03:13] VITALS: BP 155/89
[2025-04-19 03:18] VITALS: BMI 31.6
[2025-04-19] MEDS: DECADRON 2 MG IV (05:31)
[2025-04-19 07:10] VITALS: BP 163/92
[2025-04-19] MEDS: DUONEB 3 ML INH ×3 (07:13→15:12)
[2025-04-19] MEDS: PULMICORT 0.5 MG INH (07:13)
--- NOTE | 2025-04-19 07:40 | W.PN.HOSP.TC ---
Today's Communication/Plan
-
Check procalcitonin
Discharge planning
Assessment / Plan
Assessment / Plan
Assessment
This is an 89 y/o female with PMHx significant for COPD, home O2 dependent-2 L at baseline, chronic HFpEF, permanent A-fib, hypertension, hyperlipidemia, anemia of chronic disease, chronic pain with opioid dependence, fibromyalgia, peripheral
neuropathy, osteoarthritis presents to the ER for evaluation of cough and shortness of breath with junky sputum. She is diagnosed to be in COPD exacerbation with acute bronchitis.
Plan
Acute on chronic hypercapnic respiratory failure
Patient's O2 requirement increased from 2L to 6L, now down to 3L
Suspected mild acute exacerbation of heart failure with possible fluid overload from chest X-ray
S/p 1 dose of IV Lasix in the ED
Continue DuoNebs as needed
Continue Azithromycin for 5 days total (Stop date: 04/22)
Will check Pro-Calcitonin today, if negative will plan to discharge
Continue incentive spirometry, Acapella, Mucinex
Continue home inhaler regimen.
Acute on Chronic HFpEF
Small loculated right-sided pleural effusion
10/2024 Echo showed LV ejection fraction is 55-60%
Suspect pleural effusion secondary to fluid overload from HFpEF
Ultrasound today showed pleural effusion too small for thoracentesis
Continue fluid restriction, sodium restriction, continue to monitor daily weights
Will continue to monitor
Permanent A-fib
Continue labetalol and amlodipine with hold parameters
[id number] score 5
Continue Eliquis
Valvular heart disease
Mild to moderate aortic stenosis
Mild to moderate MR
Moderate TR
Elevated PASP at 53 mmHg.
Mitral sclerosis without stenosis
Hypertension
Continue amlodipine with holding parameters.
Hyperlipidemia
Not on any medication
Chronic pain syndrome
Fibromyalgia
Continue home dose opioid regimen and Butrans patch.
Anticipated Discharge: Within 24 hours
Subjective/Interval History
-
Date of Service: April 19, 2025
Patient was resting in her bed when I arrived. She states she feels fine at baseline, and only feels short of breath if she tries to move around. She does report feeling some wheezing, right more than left.
Objective Data
-
Labs:
Laboratory Results
04/19/25
06:00
WBC Pending
Hgb Pending
Hct Pending
Plt Count Pending
Sodium Pending
Potassium Pending
Chloride Pending
Carbon Dioxide Pending
BUN Pending
Creatinine Pending
Glucose Pending
Calcium Pending
Vital Signs:
Vital Signs
Temp Pulse Resp BP Pulse Ox
97.8 F 104 20 155/89 94
04/19/25 03:13 04/19/25 07:16 04/19/25 07:16 04/19/25 03:13 04/19/25 07:16
I&O
04/18/25 04/19/25 04/20/25
06:59 06:59 06:59
Intake Total 120 / 120 660 / 660
Output Total 400 / 400
Balance -280 / -280 660 / 660
Review of Systems
-
History Source: Patient
Constitutional: Denies Fever or Chills
Respiratory: Reports Wheezing; Denies Cough or Trouble Breathing
Cardiac: Denies Chest Pain or Palpitations
Abdomen/GI: Denies Abdominal Pain, Nausea or Vomiting
Physical Exam
-
General: Well Developed, Well Nourished, No Apparent Distress and Comfortable
HEENT: Normocephalic and Atraumatic
Respiratory: Other (Noisy breath sounds without wheezing/rhonchi)
Cardiac: S1/S2 and Irregular Rhythm
Skin: Warm and Dry
Neuro: Awake, Alert and Oriented
Psych: Calm
[2025-04-19] MEDS: CYMBALTA DELAYED RELEASE 20 MG PO (08:43)
[2025-04-19] MEDS: ELIQUIS 5 MG PO (08:43)
[2025-04-19] MEDS: NEURONTIN 300 MG PO ×2 (08:43→15:42)
[2025-04-19] MEDS: NORVASC 5 MG PO (08:43)
[2025-04-19] MEDS: TRANDATE 100 MG PO (08:43)
[2025-04-19] MEDS: LIORESAL 5 MG PO ×2 (08:43→15:41)
[2025-04-19] MEDS: MUCINEX 600 MG PO (08:44)
[2025-04-19] MEDS: ZITHROMAX 500 MG PO (08:44)
[2025-04-19] MEDS: ROXICODONE 5 MG PO (08:45)
[2025-04-19 09:18] LABS: Hematocrit 31.1 % (37.0-47.0); Hemoglobin 9.7 g/dL (12.0-16.0); Mean Corp Hgb Conc. 31.2 g/dL (33.0-37.0); Mean Corpuscular Volume 83.6 fL (81.0-99.0); Platelet Count 283 10^3/uL (130-400); Red Cell Dist. Width 15.9 % (11.5-14.5)
[2025-04-19 09:50] LABS: Blood Urea Nitrogen 23 mg/dl (7-17); Calcium 8.5 mg/dl (8.4-10.2); Carbon Dioxide 37 mmol/L (22-30); Chloride 91 mmol/L (98-107); Estimated Creatinine Clearance 57 ml/min; Glucose 131 mg/dl (70-99); LDH 192 U/L (120-246); Potassium 3.7 mmol/L (3.5-5.1); Sodium 132 mmol/L (135-145); Total Protein 6.5 g/dl (6.3-8.2); eGFR > 60.00
[2025-04-19] MEDS: LIDOCAINE 4% PATCH 1 PATCH TOPICAL (10:18)
[2025-04-19 11:00] VITALS: BP 129/68
--- NOTE | 2025-04-19 11:50 | W.PN.UPDATE ---
Addendum entered and electronically signed by Ambika Townsend MD 04/19/25 15:18:
Total DC time 40 minutes
Original Note:
Update Note
Progress Note Update
I saw and evaluated the patient with the residents.
HPI: 89 y/o female past medical history of COPD on chronic oxygen at around 3L [place], chronic heart failure, permanent atrial fibrillation, and hypertension; p/w shortness of breath. Patient resides at [facility] and staff noted her increasing O2
requirement.
A/P:
# Acute on Chronic Hypoxic Respiratory Failure, Possible Acute COPD Exacerbation and R loculated right pleural effusion which has progressed.
O2 support 5L [place] weaned back to home requirement at around 2-3L [place]
No wheezing, Cont Decadron 2 mg Q12H, can treat for 5 days total
Continue DuoNeb QID and PRN
Continue DENTAL TREATMENT COORDINATOR Budesonide Nebs
Continue Mucinex
Added azithromycin 500 mg x5 days
CXR noted Small loculated right pleural effusion that has progressed, Chest US did not show enough fluid for thora
Check PCT for completeness sake
# Chronic HFpEF
Patient given dose of Lasix on emergency department
Monitor Daily Weights
# Permanent Atrial Fibrillation
Continue Eliquis for anticoagulation
# Essential Hypertension
Continue amlodipine and labetalol
# Chronic Anemia
Hgb stable compared to previous
iron studies noted
low ferritin level, can cont IV iron while in the hospital
# Chronic Pain with Opioid Dependence
Continue buprenorphine patch and oxycodone
# Peripheral Neuropathy / Fibromyalgia
Continue gabapentin and duloxetine
DVT proph: Eliquis
Code Status: DNR
Dispo: return to LTC vs SNF
total time 51 min
[2025-04-19 13:04] LABS: Procalcitonin < 0.05 ng/ml (0.0-0.25)
--- NOTE | 2025-04-19 14:04 | W.DCSUMMARY ---
Documented by User: Marlyn Paniagua DO, Resident 04/19/25 14:45
Discharge Summary
Discharge Data
Date of Admission: 04/16/25
Date of Discharge: 04/19/25
-
Pending Results: No
Hospital Course
Discharging Physician : Dr. Townsend
Disposition : Fair
Primary care physician : Ryland Heath DO
Principal Discharge diagnosis : Acute on Chronic Hypercapnic Respiratory Failure, COPD Exacerbation, Acute on Chronic HFpEF, Small Right Sided Pleural Effusion
Chronic Discharge diagnosis : Permanent Atrial Fibrillation, Valvular Heart Disease, Essential Hypertension, Hyperlipidemia, Chronic Pain Syndrome, Fibromyalgia
Hospital Course : This is an 89 y/o female with pmhx of COPD on 2-3L oxygen, permanent atrial fibrillation, essential hypertension and heart failure with preserved EF who has had increased oxygen requirement with cough and feeling of chest
congestion for a few days. She presented to the ED on 04/16/2025.
In the ED she was found to have a new O2 requirement of 6L NC. She was found to have diffuse bilateral wheezes on exam. Chest X-ray showed Small loculated right pleural effusion. Progressed. Mild cardiomegaly. New Moderate elevation the right
hemidiaphragm. Stable. She was started on IV Decadron 4mg BID, DuoNebs QID and PRN for shortness of breath, and was admitted to the hospital for further management. On 04/17 her Decadron was reduced to 2mg BID and Azithromycin 500mg was added for a
5 day total course. Interventional Radiology was consulted for potential thoracentesis. She continued to improve over the weekend with oxygen requirements returning to baseline of 3L until 04/19, when an Ultrasound was performed which showed the
pleural effusion as not large enough for thoracentesis. A pro-calcitonin was also negative. She was found to be medically stable and discharged back to [facility] with 2 more days of azithromycin, and 2 days of 40mg prednisone burst. She was
encouraged to follow up with her PCP in less than 1 week
Important imaging findings :
Chest X-ray 04/16: Small loculated right pleural effusion. Progressed. Mild cardiomegaly. New Moderate elevation the right hemidiaphragm. Stable
Chest Ultrasound 04/19: Limited evaluation of the right chest was performed for procedure planning. Very small volume of right pleural fluid is present. Volume is insufficient for ultrasound-guided thoracentesis at this time.
Procedure findings : N/a
Discharge Plan
-
Patient Disposition: Residential/SNF
Discharge Diagnosis/Procedures: Acute on Chronic Hypoxic Respiratory Failure;
COPD exacerbation;
Chronic HFpEF;
Small Right Sided Pleural Effusion (too small to tap);
Permanent Atrial Fibrillation;
Essential Hypertension;
Hyperlipidemia;
Chronic Pain Syndrome/Fibromyalgia
Condition: Fair
Diet: As tolerated, 2 Gram Sodium and Restrict fluids to 64 oz
Activity: No restrictions
Driving Restrictions: As prior to admission
Bathing Restrictions: None
Instructions: *PCP/Other Credit Control Clerk Heart Failure Instructions
Referrals:
Ryland Heath DO [Family Provider, Family Practice] - in less than 1 week
Additional Discharge Medication Instructions: Thank you for visiting [facility].
Take prednisone 40mg for 2 more days
Take Azithromycin 500mg for 2 days.
Prescriptions:
New
azithromycin 250 mg Tablet
500 mg PO DAILY Qty: 2 0RF
prednisone 20 mg tablet
40 mg PO DAILY 2 Days Qty: 4 0RF
Continued
amlodipine [Norvasc] 5 mg Tablet
5 mg PO DAILY
duloxetine [Cymbalta] 30 mg Capsule,Delayed Release(Dr/Ec)
20 mg PO DAILY
buprenorphine [Butrans] 7.5 mcg/hour Patch Weekly
1 patch TRANSDERMAL
Rx Instructions:
1829
latanoprost 0.005 % Drops
1 drp BOTH EYES HS
ipratropium-albuterol 0.5 mg-3 mg(2.5 mg base)/3 mL Solution For Nebulization
3 ml INHALATION R TID
lidocaine 4 % Adhesive Patch,Medicated
1 patch TOPICAL DAILY
Rx Instructions:
on 0830, off 2030; Right Scapula
budesonide 0.5 mg/2 mL Suspension For Nebulization
0.5 mg INHALATION R BID
fluticasone propionate 50 mcg/actuation [place],Suspension
1 spray INTRANASAL BID
calcium carbonate-vitamin D3 [Oyster Shell Calcium-Vit D3] 500 mg-10 mcg (400 unit) Tablet
1 tab PO DAILY
baclofen 5 mg Tablet
5 mg PO TID
sennosides-docusate sodium [Senna Plus] 8.6-50 mg Tablet
2 tab-cap PO QPM
gabapentin 300 mg Capsule
300 mg PO TID
labetalol 100 mg Tablet
100 mg PO BID
Eliquis 2.5 mg Tablet
2.5 mg PO BID
acetaminophen 325 mg Tablet
650 mg PO Q4H PRN (Reason: mild pain/fever)
magnesium hydroxide [Milk of Magnesia] 400 mg/5 mL Suspension
2,400 mg PO HSPRN PRN (Reason: constipation)
bisacodyl 10 mg Suppository
10 mg [place] DAILY PRN (Reason: 3 days no bm, MOM is ineffective)
albuterol sulfate 90 mcg/actuation Hfa Aerosol Inhaler
2 puff INHALATION Q6H PRN (Reason: sob)
Rx Instructions:
with spacer
naloxone [Narcan] 4 mg/actuation [place],Non-Aerosol
1 spray INTRANASAL PRN PRN (Reason: opioid overdose)
Rx Instructions:
may repeat dose x1 in 2-3 min if patient does not respond or until EMT arrive
oxycodone 5 mg Tablet
5 mg PO DAILYPRN PRN (Reason: moderate pain) Qty: 2 0RF
oxycodone 5 mg Tablet
5 mg PO DAILY Qty: 2 0RF
Discontinued
prednisone 10 mg Tablet
See Rx Instructions .ROUTE .COMPLEX Qty: 45 0RF
Rx Instructions:
Take By Mouth:
50 mg daily x3 days, 40 mg daily x3 days,
30 mg daily x3 days, 20 mg daily x3 days,
10 mg daily x3 days
Discharge Orders:
Discharge Patient (As Directed); Ordered 04/19/25
Ordered By: Marlyn Paniagua
Discharge Date and Time
Print Language: GREEK

Documented by User: Ambika Townsend MD 04/19/25 15:17
Discharge Summary
Discharge Data
Date of Admission: 04/16/25
Date of Discharge: 04/19/25
Hospital Course
Discharging Physician : Dr. Townsend
Disposition : Fair
Primary care physician : Ryland Heath DO
Principal Discharge diagnosis : Acute on Chronic Hypoxic Respiratory Failure due to COPD Exacerbation, Possible acute on Chronic HFpEF, Small Right Sided Pleural Effusion
Chronic Discharge diagnosis : Permanent Atrial Fibrillation, Valvular Heart Disease, Essential Hypertension, Hyperlipidemia, Chronic Pain Syndrome, Fibromyalgia
Hospital Course : This is an 89 y/o female with pmhx of chronic hypoxic respiratory failure due to COPD on 2-3L oxygen, permanent atrial fibrillation, essential hypertension and heart failure with preserved EF who presented with increased oxygen
requirement with cough and feeling of chest congestion for a few days. She presented to the ED on 04/16/2025.
In the ED, she was found to have increased O2 requirement to 6L NC. She was found to have mild diffuse bilateral wheezing on exam. Her chest X-ray showed Small loculated right pleural effusion (which has progressed).
She was treated with IV Decadron and was discharged with oral prednisone 40 mg daily for 2 more days (total steroid course 5 days). Azithromycin 500 mg daily was also added for a 5-day course.
Interventional Radiology was consulted for potential thoracentesis, however her chest ultrasound showed the right-sided effusion to be too small to be tapped.
A pro-calcitonin level was checked for completeness sake, which was negative, hence ruled out bacterial pneumonia.
Oxygen support was weaned back to home requirement at 2 L via nasal cannula.
She was discharged back to [facility].
Important imaging findings :
Chest X-ray 04/16: Small loculated right pleural effusion. Progressed. Mild cardiomegaly. New Moderate elevation the right hemidiaphragm. Stable
Chest Ultrasound 04/19: Limited evaluation of the right chest was performed for procedure planning. Very small volume of right pleural fluid is present. Volume is insufficient for ultrasound-guided thoracentesis at this time.
Procedure findings : N/a
Discharge Plan
-
Patient Disposition: Residential/SNF
Discharge Diagnosis/Procedures: Acute on Chronic Hypoxic Respiratory Failure;
COPD exacerbation;
Chronic HFpEF;
Small Right Sided Pleural Effusion (too small to tap);
Permanent Atrial Fibrillation;
Essential Hypertension;
Hyperlipidemia;
Chronic Pain Syndrome/Fibromyalgia
Condition: Fair
Diet: As tolerated, 2 Gram Sodium and Restrict fluids to 64 oz
Activity: No restrictions
Driving Restrictions: As prior to admission
Bathing Restrictions: None
Instructions: *PCP/Other Credit Control Clerk Heart Failure Instructions
Referrals:
Ryland Heath DO [Family Provider, Family Practice] - in less than 1 week
Additional Discharge Medication Instructions: Thank you for visiting [facility].
Take prednisone 40mg for 2 more days
Take Azithromycin 500mg for 2 days.
Prescriptions:
New
azithromycin 250 mg Tablet
500 mg PO DAILY Qty: 2 0RF
prednisone 20 mg tablet
40 mg PO DAILY 2 Days Qty: 4 0RF
Continued
amlodipine [Norvasc] 5 mg Tablet
5 mg PO DAILY
duloxetine [Cymbalta] 30 mg Capsule,Delayed Release(Dr/Ec)
20 mg PO DAILY
buprenorphine [Butrans] 7.5 mcg/hour Patch Weekly
1 patch TRANSDERMAL TH
Rx Instructions:
1829
latanoprost 0.005 % Drops
1 drp BOTH EYES HS
ipratropium-albuterol 0.5 mg-3 mg(2.5 mg base)/3 mL Solution For Nebulization
3 ml INHALATION R TID
lidocaine 4 % Adhesive Patch,Medicated
1 patch TOPICAL DAILY
Rx Instructions:
on 829, off 2029; Right Scapula
budesonide 0.5 mg/2 mL Suspension For Nebulization
0.5 mg INHALATION R BID
fluticasone propionate 50 mcg/actuation [place],Suspension
1 spray INTRANASAL BID
calcium carbonate-vitamin D3 [Oyster Shell Calcium-Vit D3] 500 mg-10 mcg (400 unit) Tablet
1 tab PO DAILY
baclofen 5 mg Tablet
5 mg PO TID
sennosides-docusate sodium [Senna Plus] 8.6-50 mg Tablet
2 tab-cap PO QPM
gabapentin 300 mg Capsule
300 mg PO TID
labetalol 100 mg Tablet
100 mg PO BID
Eliquis 2.5 mg Tablet
2.5 mg PO BID
acetaminophen 325 mg Tablet
650 mg PO Q4H PRN (Reason: mild pain/fever)
magnesium hydroxide [Milk of Magnesia] 400 mg/5 mL Suspension
2,400 mg PO HSPRN PRN (Reason: constipation)
bisacodyl 10 mg Suppository
10 mg [place] DAILY PRN (Reason: 3 days no bm, MOM is ineffective)
albuterol sulfate 90 mcg/actuation Hfa Aerosol Inhaler
2 puff INHALATION Q6H PRN (Reason: sob)
Rx Instructions:
with spacer
naloxone [Narcan] 4 mg/actuation [place],Non-Aerosol
1 spray INTRANASAL PRN PRN (Reason: opioid overdose)
Rx Instructions:
may repeat dose x1 in 2-3 min if patient does not respond or until EMT arrive
oxycodone 5 mg Tablet
5 mg PO DAILYPRN PRN (Reason: moderate pain) Qty: 2 0RF
oxycodone 5 mg Tablet
5 mg PO DAILY Qty: 2 0RF
Discontinued
prednisone 10 mg Tablet
See Rx Instructions .ROUTE .COMPLEX Qty: 45 0RF
Rx Instructions:
Take By Mouth:
50 mg daily x3 days, 40 mg daily x3 days,
30 mg daily x3 days, 20 mg daily x3 days,
10 mg daily x3 days
Discharge Orders:
Discharge Patient (As Directed); Ordered 04/19/25
Ordered By: Marlyn Paniagua
Discharge Date and Time
Print Language: GREEK
[2025-04-19 14:57] VITALS: O2SAT 96
[2025-04-19 15:25] VITALS: BP 135/81
[2025-04-19] MEDS: FERRLECIT IV (15:39)
== END 2025-04-19 17:57 | DRG 190 ==
LOC: 4 EAST ACU 19:15
PROVIDERS: Physician Assistant Medical; Student in an Organized Health Care Education/Training Program; ADMITTING PHYSICIAN Internal Medicine; ATTENDING PHYSICIAN Internal Medicine; EMERGENCY PHYSICIAN Emergency Medicine; FAMILY PHYSICIAN Student in an Organized Health Care Education/Training Program
DX: J44.1 Chronic obstructive pulmonary disease with (acute) exacerbation (principal); J96.21 Acute and chronic respiratory failure with hypoxia; J96.22 Acute and chronic respiratory failure with hypercapnia; I48.21 Permanent atrial fibrillation; I50.32 Chronic diastolic (congestive) heart failure; F11.20 Opioid dependence, uncomplicated; E87.3 Alkalosis; I11.0 Hypertensive heart disease with heart failure; G89.4 Chronic pain syndrome; M79.7 Fibromyalgia; Z79.899 Other long term (current) drug therapy; Z99.81 Dependence on supplemental oxygen; D64.9 Anemia, unspecified; G62.9 Polyneuropathy, unspecified; Z79.01 Long term (current) use of anticoagulants; Z90.710 Acquired absence of both cervix and uterus; I35.0 Nonrheumatic aortic (valve) stenosis; E66.9 Obesity, unspecified; E78.2 Mixed hyperlipidemia; I05.8 Other rheumatic mitral valve diseases; I07.1 Rheumatic tricuspid insufficiency; Z66 Do not resuscitate; Z11.52 Encounter for screening for COVID-19
CPT/HCPCS: 71045; 76604; 80048; 80053; 82607; 82728; 82746; 83540; 83550; 83615; 83735; 83880; 84145; 84155; 84484; 85025; 85027; 87070; 87502; 87811; 93005; 94640; 94644; 96374; 96375; 97116; 97163; 97167; 97530; 97535; 99291; J2916

== ENCOUNTER → 2025-05-08 07:12 | Outpatient (REF) | payer MEDICARE, OTHER, SELFPAY ==
[2025-05-08 08:43] LABS: Hematocrit 30.1 % (37.0-47.0); Hemoglobin 9.3 g/dL (12.0-16.0); Mean Corp Hgb Conc. 30.9 g/dL (33.0-37.0); Mean Corpuscular Volume 90.7 fL (81.0-99.0); Nucleated Red Blood Cells % 0 %; Platelet Count 175 10^3/uL (130-400); Red Cell Dist. Width 16.6 % (11.5-14.5)
[2025-05-08 08:49] LABS: ALT (SGPT) < 10 U/L (0-35); AST (SGOT) 19 U/L (14-36); Albumin 3.3 g/dl (3.5-5.0); Alkaline Phosphatase 56 U/L (38-126); Blood Urea Nitrogen 13 mg/dl (7-17); Calcium 8.5 mg/dl (8.4-10.2); Carbon Dioxide 36 mmol/L (22-30); Chloride 98 mmol/L (98-107); Glucose 93 mg/dl (70-99); Magnesium 2.1 mg/dl (1.6-2.3); Potassium 4.3 mmol/L (3.5-5.1); Sodium 136 mmol/L (135-145); Total Protein 5.8 g/dl (6.3-8.2); eGFR > 60.00
== END ==
LOC: OLABN 07:12
PROVIDERS: ATTENDING PHYSICIAN Student in an Organized Health Care Education/Training Program
DX: R60.9 Edema, unspecified (principal); R63.5 Abnormal weight gain
CPT/HCPCS: 36415; 80053; 83735; 83880; 85025

== ENCOUNTER → 2025-06-15 10:46 | Outpatient (REF) | payer MEDICARE, OTHER, SELFPAY ==
[2025-06-15 15:39] LABS: ALT (SGPT) < 10 U/L (0-35); AST (SGOT) 17 U/L (14-36); Albumin 3.4 g/dl (3.5-5.0); Alkaline Phosphatase 59 U/L (38-126); Blood Urea Nitrogen 11 mg/dl (7-17); Calcium 8.5 mg/dl (8.4-10.2); Carbon Dioxide 34 mmol/L (22-30); Chloride 97 mmol/L (98-107); Glucose 135 mg/dl (70-99); Magnesium 2.2 mg/dl (1.6-2.3); Potassium 4.5 mmol/L (3.5-5.1); Sodium 132 mmol/L (135-145); Total Protein 5.9 g/dl (6.3-8.2); eGFR > 60.00
== END ==
LOC: OLABN 10:46
PROVIDERS: ATTENDING PHYSICIAN Student in an Organized Health Care Education/Training Program
DX: I50.32 Chronic diastolic (congestive) heart failure (principal)
CPT/HCPCS: 36415; 80053; 83735; 83880